=== PATIENT | male | born 1990 | race Hispanic/Latino ===

== ENCOUNTER 2018-08-31 16:48 | Emergency (ER) | payer OTHER, SELFPAY ==
[2018-08-31 16:53] VITALS: BP 138/96; PULSE 85; RESP 16; TEMP 36.7; O2SAT 97; BMI 29.5
--- NOTE | 2018-08-31 17:17 | DI.CT.S_ITS ---
PROCEDURE: CT HEAD/BRAIN WO CON INDICATIONS: blurred vision TECHNIQUE: Noncontrast 4.5 mm thick angled axial sections acquired from the foramen magnum to the vertex, with coronal and sagittal reformats. For radiation dose reduction, the following was used: automated exposure control, adjustment of mA and/or kV according to patient size. COMPARISON: None. FINDINGS: Image quality: Excellent. CSF spaces: Basal cisterns are patent. No extra-axial fluid collections. Ventricles are normal in size and shape. Brain: No midline shift. No intracranial masses or hemorrhage. Maria-white matter interface is normal. Skull and face: Calvarium and visualized facial bones are intact, without suspicious lesions. Sinuses: Visualized sinuses and mastoids are clear. IMPRESSION: Normal noncontrast head CT. If clinically appropriate, please consider a dedicated orbits protocol MRI for further evaluation, without and with contrast (assuming that there is no contraindication). Dictated by: Roc Perla M.D. on 08/31/2018 at 16:48 Approved by: Roc Perla M.D. on 08/31/2018 at 16:49
--- NOTE | 2018-08-31 17:39 | ED_ITS ---
HPI - Eye Problem General Chief complaint: Eye Problems Stated complaint: both eyes are blurry/black specks x2days Time Seen by Provider: 08/31/18 17:02 Source: patient and family Mode of arrival: ambulatory Limitations: no limitations History of Present Illness HPI Narrative: A 28-year-old male nonsmoker with minimal other medical problems presents with a chief complaint bilateral blurring of vision and floaters. He denies any headache, nausea or vomiting. He denies any trauma or other injury. He denies fever or chills. He states that he had flu-like symptoms about 2 weeks ago which were rather severe but have completely resolved for at least 1 week. He denies any history of the same. He has no history of migraines. He denies eye pain, redness or watering. He denies exposure to UV lights or possib le foreign bodies chief complaint: vision change Onset (ago): day(s) Onset description: gradual Duration: constant Location: both eyes Eye Symptoms: decreased vision, blurry vision and photophobia Severity: mild Context: recent URI Associated symptoms: none Treatments Prior to Arrival: none Related Data Allergies Allergy/AdvReac Type Severity Reaction Status Date / Time ibuprofen Allergy Hives Verified 08/31/18 16:57 Review of Systems Constitutional Denies chills, Denies fever(s), Denies lethargy and Denies weakness Eyes Reports change in vision, Denies eye discharge, Reports floaters, Denies irritation and Denies loss of vision ENT Ears, Nose, Mouth, and Throat: Denies change in voice, Denies neck pain and Denies sore throat Cardiovascular Denies chest pain, Denies irregular heart rhythm, Denies lightheadedness, Denies palpitations, Denies dyspnea, Denies dyspnea on exertion and Denies orthopnea Respiratory Denies cough, Denies dyspnea, Denies dyspnea on exertion and Denies wheezing Gastrointestinal Gastrointestinal: Denies abdominal pain, Denies change in bowel habits, Denies diarrhea, Denies nausea and Denies vomiting Genitourinary Denies hematuria, Denies flank pain, Denies urinary incontinence and Denies urinary urgency Musculoskeletal Denies neck pain Integumentary/Breasts Denies pruritus, Denies erythema, Denies rash and Denies wounds Neurologic Denies confusion, Denies loss of vision and Denies weakness Psychiatric Denies anxiety, Denies confusion, Denies depression, Denies homicidal ideation and Denies suicidal ideation Endocrine Denies palpitations Hematologic/Lymphatic Denies easy bruising Allergic/Immunologic Denies wheezing PFSH Social History Smoking Status: Never smoker Social History Smoking Status: Never smoker Exam Narrative Exam Narrative: GEN: AOx3 and in mild distress EYES: Pupils are equal, round, and reactive to light and accommodation. Extraoccular muscles are intact bilaterally. There is no subconjunctival hemorrhage or exudate. Proparacaine instilled in both eyes. Pressure in right eye is 17, left eye in 19. Visual Acuity 20/70 OS/OD corrected CHEST: Lungs are clear to auscultation bilaterally and free of wheezes, rales, or rhonchi. Heart rate is regular rhythm, there are no murmurs, clicks, rubs, or gallops. There is no chest wall tenderness. ABD: Abdomen is soft and nontender. There is no guarding or rebound. Bowel sounds are normal in all 4 quadrants. There is no mass or organomegaly. EXT: Full painless ROM of all extremities with no loss of sensation or strength. SKIN: Warm, pink, and dry. No erythema or rash NIH Stroke Scale 1a. LOC: Patient is alert and keenly responsive (0) 1b. LOC Questions: Patient answers both LOC questions accurately (0) 1c. LOC Commands: Patient performs both tasks correctly (0) 2. Best Gaze: Normal (0) 3. Visual: No visual loss (0) 4. Facial palsy: Normal symmetrical movements (0) 5. Motor arm: No drift (0) 6. Motor leg: No drift (0) 7. Limb ataxia: Absent (0) 8. Sensory: Normal (0) 9. Best language: No aphasia; normal (0) 10. Dysarthria: Normal (0) 11. Extinction and inattention: No abnormality (0) NIHSS: 0 Initial Vital Signs Initial Vital Signs: Vital Signs Temperature 98.0 F 08/31/18 16:53 Pulse Rate 85 08/31/18 16:53 Respiratory Rate 16 08/31/18 16:53 Blood Pressure 138/96 H 08/31/18 16:53 Pulse Oximetry 97 08/31/18 16:53 Course Orders Ordered: ED Orders 08/31/18 17:17 CT head/brain wo con Stat 08/31/18 17:30 Basic Metabolic Panel Stat C-Reactive Protein Quant Stat Complete Blood Count AUTO DIFF Stat Erythrocyte Sedimentation Rate Stat Discontinued Medications Sodium Chloride (Normal Saline 0.9%) 1,000 mls @ 1,000 mls/hr IV BOLUS ONE Stop: 08/31/18 18:15 Last Infusion: 08/31/18 19:06 Dose: 0 mls/hr Admin: 08/31/18 17:57 Dose: 1,000 mls/hr Methylprednisolone (Solu-Medrol 125 Mg Vial) 125 mg IV NOW ONE Stop: 08/31/18 17:17 Last Admin: 08/31/18 17:56 Dose: 125 mg Metoclopramide HCl (Reglan) 10 mg IV NOW ONE Stop: 08/31/18 17:17 Last Admin: 08/31/18 17:56 Dose: 10 mg Consultations Consultation #1: call to Ophtho at [facility] to discuss case. They are happy with evaluation and treatment thusfar but recommend follow up in next day or two. No need for emergent transfer or intervention Vital Signs - 8 hr 08/31/18 16:53 08/31/18 18:33 08/31/18 19:50 Temperature 98.0 F 98.1 F Pulse Rate 85 64 88 Respiratory Rate 16 17 16 Blood Pressure 138/96 H 134/91 H Blood Pressure [Left Arm] 134/86 Pulse Oximetry 97 98 96 MDM - Eye Problem Lab Data Result diagrams: 08/31/18 17:30 08/31/18 17:30 Lab Results 08/31/18 08/31/18 Range/Units 17:30 17:30 WBC 8.4 (4.5-11.0) X10^3/uL RBC 4.71 (4.5-5.9) X10^6/uL Hgb 12.6 L (13.5-17.5) g/dL Hct 37.7 L (41-53) % MCV 80.0 (80-100) fL MCH 26.8 (26-34) PG MCHC 33.4 (30-36) % RDW 15.7 H (11.6-14.8) % Plt Count 307 (150-400) X10^3/uL Neut % (Auto) 65.0 (50-75) % Lymph % (Auto) 22.4 L (25-40) % [place] % (Auto) 11.3 (3-14) % Eos % (Auto) 0.7 L (2-4) % Baso % (Auto) 0.6 (0-2) % Neut # (Auto) 5500 (7917-7021) /uL Lymph # (Auto) 1900 (7104-3476) /uL [place] # (Auto) 900 (0-900) /uL Eos # (Auto) 100 (0-450) /uL Baso # (Auto) 0 (0-100) /uL ESR 20 H (0-15) MM/HR Sodium 140 (137-145) mmol/L Potassium 4.0 (3.4-5.1) mmol/L Chloride 102 (98-107) mmol/L Carbon Dioxide 28 (22-32) mmol/L BUN 13 (9-20) mg/dL Creatinine 0.70 (0.66-1.25) mg/dL Estimated GFR > 60.0 (>60) mL/min BUN/Creatinine Ratio 18.6 (6-22) Glucose 93 (70-100) mg/dL Calcium 9.7 (8.4-10.2) mg/dL C-Reactive Protein 1.9 H (<1.0) mg/dL Imaging Data CT scan - head: Radiologist's impression: JorgeMarkus 28 [place] 1990 [place] [address] CT Scan Report Signed Patient: Markus Patel BMR#: [id number] : 1990Acct:[id number] Age/Sex: 28 MDate of Service: 08/31/18 Loc: ED Accession Number: [id number] Procedure: CT head/brain wo con Ordering Provider: Thomas Hutchison D.O. PROCEDURE: CT HEAD/BRAIN WO CON INDICATIONS: blurred vision TECHNIQUE: Noncontrast 4.5 mm thick angled axial sections acquired from the foramen magnum to the vertex, with coronal and sagittal reformats. For radiation dose reduction, the following was used: automated exposure control, adjustment of mA and/or kV according to patient size. COMPARISON: None. FINDINGS: Image quality: Excellent. CSF spaces: Basal cisterns are patent. No extra-axial fluid collections. Ventricles are normal in size and shape. Brain: No midline shift. No intracranial masses or hemorrhage. Maria-white matter interface is normal. Skull and face: Calvarium and visualized facial bones are intact, without suspicious lesions. Sinuses: Visualized sinuses and mastoids are clear. IMPRESSION: Normal noncontrast head CT. If clinically appropriate, please consider a dedicated orbits protocol MRI for further evaluation, without and with contrast (assuming that there is no contraindicati on). Dictated by: Roc Perla M.D. on 08/31/2018 at 16:48 Approved by: Roc Perla M.D. on 08/31/2018 at 16:[address] [facility] Narrative Medical decision making narrative: Multiple etiologies for patient's symptoms considered including: [atypical migraine, GCA, stroke, vs. other.] Patient's symptoms improved over duration of stay with above-stated therapies. Findings and discharge diagnosis discussed with patient/family followed by verbalization of understanding Return precautions discussed with patient/family whom verbalize understanding. Discharge Plan Departure Patient Disposition: Home Clinical Impression: Photophobia, Change in vision Discharge Date/Time: 08/31/18 19:51 Interventions: ED Discharge Assessment Last Done: 08/31/18 19:50 Instructions: DI for Eye Floaters Activity Restrictions/Additional Instructions: *You have been diagnosed with [photophobia, blurred vision] *What to do: *Follow up with [facility] tomorrow morning. They will see Emergency Department patients the following morning without appointment. Let them know you were seen in the Emergency Department and that we ask that you be seen in follow up *Return to ER if you should have any new, worsening or concerning symptoms Referrals: Wendy Mayo MD [Physician] -
[2018-08-31 17:48] LABS: Add Manual Diff / Slide Review NO; Basophils Absolute Auto 0 /uL (0-100); Basophils Percent Auto 0.6 % (0-2); Eosinophils Absolute Auto 100 /uL (0-450); Eosinophils Percent Auto 0.7 % (2-4); Hematocrit 37.7 % (41-53); Hemoglobin 12.6 g/dL (13.5-17.5); Lymphocytes Absolute Auto 1900 /uL (1100-4500); Lymphocytes Percent Auto 22.4 % (25-40); Mean Corpuscular HGB Conc 33.4 % (30-36); Mean Corpuscular Hemoglobin 26.8 PG (26-34); Monocytes Absolute Auto 900 /uL (0-900); Monocytes Percent Auto 11.3 % (3-14); Neutrophils Absolute Auto 5500 /uL (1500-7000); Platelet Count 307 X10^3/uL (150-400); Red Blood Cell Count 4.71 X10^6/uL (4.5-5.9); Red Cell Distribution Width 15.7 % (11.6-14.8); White Blood Cell Count 8.4 X10^3/uL (4.5-11.0)
[2018-08-31] MEDS: METOCLOPRAMIDE 10 MG/2 ML INJ IV (17:56)
[2018-08-31] MEDS: methylPREDNISolone 125 MG/2 ML VIAL IV (17:56)
[2018-08-31] MEDS: SODIUM CHLORIDE 0.9% 1,000 ML 1000 ML IV (17:57)
[2018-08-31 17:59] LABS: BUN Creatinine Ratio 18.6 (6-22); Blood Urea Nitrogen 13 mg/dL (9-20); C-Reactive Protein Quant 1.9 mg/dL (<1.0); Calcium 9.7 mg/dL (8.4-10.2); Carbon Dioxide 28 mmol/L (22-32); Chloride 102 mmol/L (98-107); Estimated Glomerular Filt Rate > 60.0 mL/min (>60); Glucose 93 mg/dL (70-100); HEMOLYSIS < 15 (0-50); Sodium 140 mmol/L (137-145)
[2018-08-31 18:02] LABS: Erythrocyte Sedimentation Rate 20 MM/HR (0-15)
[2018-08-31 18:33] VITALS: BP 134/86; PULSE 64; RESP 17; O2SAT 98
[2018-08-31 19:50] VITALS: BP 134/91; PULSE 88; RESP 16; TEMP 36.7; O2SAT 96
== END 2018-08-31 19:51 | disposition home or self-care (01) ==
PROVIDERS: Emergency Provider Emergency Medicine
DX: H53.9 Unspecified visual disturbance (principal); H53.149 Visual discomfort, unspecified
CPT/HCPCS: 70450; 80048; 85025; 85651; 86140; 96361; 96374; 96375; 99283; 99284; J2765; J2930

== ENCOUNTER 2020-02-20 12:31 | Inpatient (IN) | payer OTHER, SELFPAY ==
[2020-02-20] VITALS (17 sets, daily range): BP systolic 104–133; BP diastolic 58–75; PULSE 96–133; RESP 16–31; TEMP 37–38.8; O2SAT 88–96; BMI 31.5
--- NOTE | 2020-02-20 12:45 | PC.NURSE ---
pt came into ED at 94% on O2 in triage, while charting triage pt dropped to 88% O2 while relaxing and drifting off to sleep, pt placed on 2L O2
--- NOTE | 2020-02-20 13:16 | ED_ITS ---
HPI - URI/Sore Throat General Chief Complaint: Upper Respiratory Symptoms Stated Complaint: COVID Exposure, COVID Symptoms Time Seen by Provider: 02/20/20 12:39 Source: patient Mode of arrival: Ambulatory Limitations: no limitations History of Present Illness HPI Narrative: Patient is a 29-year-old male who started having headaches fever chills and has a known COVID positive exposure, his dad. Symptoms started about 1 week ago. He continues to have body aches and chills. He is more short of breath than normal. His dad actually was recently intubated and transferred to a larger facility. He has no known cor morbidities, foot is noted to be tachycardic on O2 dropped to 86-88% on room air. Grandmother this morning from COVID. He is noted to be febrile he states he took 2 tabs of Tylenol 2 hours prior to arrival. MD Complaint: fever and cough Relieving factors: nothing Related Data Home Medications Medication Instructions Recorded Confirmed No Known Home Medications 02/20/20 02/20/20 Allergies Allergy/AdvReac Type Severity Reaction Status Date / Time ibuprofen Allergy Hives Verified 08/31/18 16:57 Review of Systems Review of Systems ROS Unobtainable: All systems reviewed & are unremarkable except as noted in HPI and below Constitutional Constitutional: Reports body ache(s), Reports chills, Reports fever(s) and Denies frequent falls Eyes Eyes: Denies blurry vision ENT Ears, Nose, Mouth, and Throat: Denies dizziness Cardiovascular Cardiovascular: Denies chest pain, Denies irregular heart rhythm, Denies lightheadedness, Denies palpitations, Reports dyspnea and Reports orthopnea Respiratory Respiratory: Reports chest congestion, Reports cough, Denies excessive phlegm production and Reports dyspnea Gastrointestinal Gastrointestinal: Denies abdominal pain, Denies change in bowel habits, Denies diarrhea, Denies nausea and Denies vomiting Musculoskeletal Musculoskeletal: Denies back pain, Reports myalgias and Denies numbness Integumentary/Breasts Skin/Breast: Denies pruritus, Denies erythema, Denies rash and Denies wounds Neurologic Neurologic: Denies behavioral changes, Denies confusion, Denies dizziness, Denies frequent falls and Denies numbness Psychiatric Psychiatric: Denies behavioral changes and Denies confusion Endocrine Endocrine: Denies palpitations Patient History Medical History Patient denies medical problems Surgical History No pertinent past surgical history Family History Father Diabetes mellitus Asthma Mother Healthy adult Sister Asthma Social History household members: family Smoking Status: Never smoker Smoking Status: Never smoker Substance Use Type: does not use Exam Initial Vital Signs Initial Vital Signs: Vital Signs Pulse Rate 130 H 02/20/20 12:40 Pulse Oximetry 93 02/20/20 12:40 GENERAL: Slightly overweight male resting HEENT: Head atraumatic,EOMI, pupils reactive, face symmetric, moist mucous membranes CARDIOVASCULAR tachycardic no murmur RESPIRATORY: Breath sounds equal bilaterally, no wheezes rales or rhonchi. ABDOMEN: Soft, nontender. Normoactive bowel sounds all 4 quadrants. No guarding or rebound. EXTREMITIES: Normal range of motion, no clubbing or edema. Neurovascularly intact NEUROLOGICAL: Alert and oriented x4.Normal gait and speech. Cranial nerves II through XII grossly intact. SKIN: Warm, dry, no laceration, no petechiae, no rashes or lesions. Course Orders Ordered: ED Orders 02/20/20 12:48 COVID19 Stat 02/20/20 13:14 EKG-12 Lead Stat 02/20/20 13:15 XR chest 1V Stat 02/20/20 13:20 C-Reactive Protein Quant Stat Complete Blood Count AUTO DIFF Stat Comprehensive Metabolic Panel Stat D Dimer Stat Ferritin Stat Lactate (Lactic Acid) Stat Lactate Dehydrogenase Stat NT-proBNP (BNP-Adult 18+) Stat Procalcitonin Stat Troponin & CK Cardiac Panel Stat 02/20/20 15:10 Respiratory Panel (Film Array) Stat Acetaminophen (Acetaminophen 325 Mg Tablet) 650 mg PO Q6HR PRN PRN Reason: Fever/Mild Pain (1-3) Al Hydrox/Mg Hydrox/Simethicone (Mag Hydrox/Alum/Simeth 30 Ml Udc) 30 ml PO Q6HR PRN PRN Reason: Dyspepsia Albuterol (Albuterol Hfa 200 Puff/18 Gm Inh (Covid Pos/Vent Pts)) 2 puff INH [id number] PRN PRN Reason: Shortness Of Breath Benzocaine (Benzocaine/Menthol 1 Antonia Pkt) 1 each PO Q4HR PRN PRN Reason: Cough, sore throat Last Admin: 02/20/20 17:41 Dose: 1 each Documented by: GABINO Benzonatate (Benzonatate 100 Mg Capsule) 100 mg PO TID PRN PRN Reason: Cough Bisacodyl (Bisacodyl 10 Mg Supp) 10 mg SD DAILY PRN PRN Reason: Constipation Calcium Carbonate (Calcium Carbonate 500 Mg Tab) 1,000 mg PO Q4HR PRN PRN Reason: Dyspepsia Dexamethasone (Dexamethasone 10 Mg/Ml Vial) 6 mg IV DAILY [facility] Dextrose (Dextrose 50 % In Water 25 Gm/50 Ml Syringe) 25 gm IV PRN PRN; Protocol PRN Reason: Hypoglycemia Enoxaparin Sodium (Enoxaparin 40 Mg/0.4 Ml Syringe) 40 mg SUBCUT DAILY TON Guaifenesin/Codeine Phosphate (Codeine/Guaifenesin Liquid 5ml Udc) 5 ml PO Q6H PRN PRN Reason: Cough Sodium Chloride (Normal Saline 0.9%) 1,000 mls @ 125 mls/hr IV CONT TON Last Infusion: 02/20/20 15:54 Dose: 125 mls/hr Documented by: Admin: 02/20/20 13:20 Dose: 125 mls/hr Documented by: ANITRAOTEM Remdesivir 100 mg/ Sodium (Chloride) 250 mls @ 250 mls/hr IV 1400 TON Ibuprofen (Ibuprofen 600 Mg Tablet) 600 mg PO Q6HR PRN PRN Reason: Fever/Mild Pain (1-3) Insulin Aspart (Insulin Aspart 100 Unit/Ml Insuln Pen) 0 unit SUBCUT ACHS [facility]; Protocol Magnesium Hydroxide (Magnesium Hydroxide 30 Ml Udc) 30 ml PO DAILY PRN PRN Reason: Constipation Naloxone HCl (Naloxone 0.4 Mg/Ml Vial) 0.2 mg IV Q2MIN PRN PRN Reason: Opiate Reversal Ondansetron HCl (Ondansetron 4 Mg/2 Ml Inj) 4 mg IV Q8HR PRN PRN Reason: Nausea And Vomiting Ondansetron HCl (Ondansetron 4 Mg Odt) 4 mg PO Q8HR PRN PRN Reason: Nausea And Vomiting Promethazine HCl (Promethazine 12.5 Mg Supp) 12.5 mg SD Q6HR PRN PRN Reason: Nausea And Vomiting Discontinued Medications Acetaminophen (Acetaminophen 325 Mg Tablet) 975 mg PO NOW ONE Stop: 02/20/20 15:31 Last Admin: 02/20/20 15:33 Dose: 975 mg Documented by: PAULA Dexamethasone (Dexamethasone 4 Mg/Ml Vial) 6 mg IV NOW ONE Stop: 02/20/20 14:48 Last Admin: 02/20/20 15:06 Dose: Not Given Documented by: NATHAN Remdesivir 200 mg/ Sodium (Chloride) 250 mls @ 250 mls/hr IV NOW ONE Stop: 02/20/20 14:48 Last Infusion: 02/20/20 17:22 Dose: 0 mls/hr Documented by: Infusion: 02/20/20 15:56 Dose: 250 mls/hr Documented by: Admin: 02/20/20 15:05 Dose: 250 mls/hr Documented by: NATHAN Potassium Chloride (Potassium Chloride 20 Meq Tab) 40 meq PO NOW ONE Stop: 02/20/20 16:48 Last Admin: 02/20/20 17:41 Dose: 40 meq Documented by: GABINO Vital Signs Vital signs: Vital Signs - 8 hr 02/20/20 12:40 02/20/20 12:41 02/20/20 12:45 Temperature 100.6 F H Pulse Rate 130 H 133 H Respiratory Rate 26 H Blood Pressure 104/58 L Pulse Oximetry 93 93 88 L 02/20/20 13:00 02/20/20 13:30 02/20/20 13:47 Temperature Pulse Rate 110 H 109 H 104 H Respiratory Rate Blood Pressure 112/65 133/69 Pulse Oximetry 94 96 93 02/20/20 14:00 02/20/20 14:30 Temperature Pulse Rate 97 H 106 H Respiratory Rate 24 31 H Blood Pressure 121/65 118/72 Pulse Oximetry 94 94 MDM - URI/Sore Throat Lab Data Attestation: I reviewed the patient's lab results. Result diagrams: 02/20/20 13:20 02/20/20 13:20 Labs: Lab Results 02/20/20 02/20/20 02/20/20 Range/Units 12:48 13:20 13:20 WBC (4.5-11.0) X10^3/uL RBC (4.5-5.9) X10^6/uL Hgb (13.5-17.5) g/dL Hct (41-53) % MCV (80-100) fL MCH (26-34) PG MCHC (30-36) % RDW (11.6-14.8) % Plt Count (150-400) X10^3/uL Neut % (Auto) (50-75) % Lymph % (Auto) (25-40) % Reynolds % (Auto) (3-14) % Eos % (Auto) (2-4) % Baso % (Auto) (0-2) % Neut # (Auto) (1857-2707) /uL Lymph # (Auto) (0197-6201) /uL Reynolds # (Auto) (0-900) /uL Eos # (Auto) (0-450) /uL Baso # (Auto) (0-100) /uL D-Dimer 254 H (<230) ng/mL Sodium (137-145) mmol/L Potassium (3.4-5.1) mmol/L Chloride (98-107) mmol/L Carbon Dioxide (22-32) mmol/L BUN (9-20) mg/dL Creatinine (0.66-1.25) mg/dL Estimated GFR (>60) mL/min BUN/Creatinine Ratio (6-22) Glucose (70-100) mg/dL Hemoglobin A1c (4.0-6.0) % Lactate (0.7-2.1) mmol/L Calcium (8.4-10.2) mg/dL Magnesium (1.6-2.3) mg/dL Ferritin (18-464) ng/mL Total Bilirubin (0.2-1.3) mg/dL AST (17-59) IU/L ALT (<50) IU/L Alkaline Phosphatase (38-126) U/L Lactate Dehydrogenase (313-618) U/L Total Creatine Kinase (55-170) U/L CK-MB (CK-2) (<2.37) ng/mL CK-MB (CK-2) Rel Index (1.5-5.0) % Troponin I (0.01-0.034) ng/mL C-Reactive Protein (<1.0) mg/dL NT-Pro-B Natriuret Pep (<125) pg/mL Total Protein (6.3-8.2) g/dL Albumin (3.5-5.0) g/dL Globulin (1.7-4.1) g/dL Albumin/Globulin Ratio (1.0-2.8) Procalcitonin 0.13 (<0.5) ng/mL COVID-19 PCR Positive H (Negative) 02/20/20 02/20/20 02/20/20 Range/Units 13:20 13:20 13:20 WBC 7.8 (4.5-11.0) X10^3/uL RBC 5.56 (4.5-5.9) X10^6/uL Hgb 13.9 (13.5-17.5) g/dL Hct 42.4 (41-53) % MCV 76.2 L (80-100) fL MCH 24.9 L (26-34) PG MCHC 32.7 (30-36) % RDW 15.3 H (11.6-14.8) % Plt Count 171 (150-400) X10^3/uL Neut % (Auto) 81.0 H (50-75) % Lymph % (Auto) 11.6 L (25-40) % Reynolds % (Auto) 7.1 (3-14) % Eos % (Auto) 0.0 L (2-4) % Baso % (Auto) 0.3 (0-2) % Neut # (Auto) 6300 (2314-0289) /uL Lymph # (Auto) 900 L (7367-6067) /uL Reynolds # (Auto) 600 (0-900) /uL Eos # (Auto) 0 (0-450) /uL Baso # (Auto) 0 (0-100) /uL D-Dimer (<230) ng/mL Sodium 139 (137-145) mmol/L Potassium 3.6 (3.4-5.1) mmol/L Chloride 103 (98-107) mmol/L Carbon Dioxide 28 (22-32) mmol/L BUN 18 (9-20) mg/dL Creatinine 1.08 (0.66-1.25) mg/dL Estimated GFR > 60.0 (>60) mL/min BUN/Creatinine Ratio 16.7 (6-22) Glucose 101 H (70-100) mg/dL Hemoglobin A1c (4.0-6.0) % Lactate 1.0 (0.7-2.1) mmol/L Calcium 8.6 (8.4-10.2) mg/dL Magnesium (1.6-2.3) mg/dL Ferritin 92 (18-464) ng/mL Total Bilirubin 0.5 (0.2-1.3) mg/dL AST 60 H (17-59) IU/L ALT 29 (<50) IU/L Alkaline Phosphatase 83 (38-126) U/L Lactate Dehydrogenase 1333 H (313-618) U/L Total Creatine Kinase 731 H (55-170) U/L CK-MB (CK-2) 0.47 (<2.37) ng/mL CK-MB (CK-2) Rel Index 0.1 L (1.5-5.0) % Troponin I < 0.012 (0.01-0.034) ng/mL C-Reactive Protein 4.1 H (<1.0) mg/dL NT-Pro-B Natriuret Pep < 11 (<125) pg/mL Total Protein 8.2 (6.3-8.2) g/dL Albumin 4.3 (3.5-5.0) g/dL Globulin 3.9 (1.7-4.1) g/dL Albumin/Globulin Ratio 1.1 (1.0-2.8) Procalcitonin (<0.5) ng/mL COVID-19 PCR (Negative) 02/20/20 02/20/20 Range/Units 13:20 13:20 WBC (4.5-11.0) X10^3/uL RBC (4.5-5.9) X10^6/uL Hgb (13.5-17.5) g/dL Hct (41-53) % MCV (80-100) fL MCH (26-34) PG MCHC (30-36) % RDW (11.6-14.8) % Plt Count (150-400) X10^3/uL Neut % (Auto) (50-75) % Lymph % (Auto) (25-40) % Reynolds % (Auto) (3-14) % Eos % (Auto) (2-4) % Baso % (Auto) (0-2) % Neut # (Auto) (3524-2033) /uL Lymph # (Auto) (9200-4185) /uL Reynolds # (Auto) (0-900) /uL Eos # (Auto) (0-450) /uL Baso # (Auto) (0-100) /uL D-Dimer (<230) ng/mL Sodium (137-145) mmol/L Potassium (3.4-5.1) mmol/L Chloride (98-107) mmol/L Carbon Dioxide (22-32) mmol/L BUN (9-20) mg/dL Creatinine (0.66-1.25) mg/dL Estimated GFR (>60) mL/min BUN/Creatinine Ratio (6-22) Glucose (70-100) mg/dL Hemoglobin A1c 6.2 H (4.0-6.0) % Lactate (0.7-2.1) mmol/L Calcium (8.4-10.2) mg/dL Magnesium 2.2 (1.6-2.3) mg/dL Ferritin (18-464) ng/mL Total Bilirubin (0.2-1.3) mg/dL AST (17-59) IU/L ALT (<50) IU/L Alkaline Phosphatase (38-126) U/L Lactate Dehydrogenase (313-618) U/L Total Creatine Kinase (55-170) U/L CK-MB (CK-2) (<2.37) ng/mL CK-MB (CK-2) Rel Index (1.5-5.0) % Troponin I (0.01-0.034) ng/mL C-Reactive Protein (<1.0) mg/dL NT-Pro-B Natriuret Pep (<125) pg/mL Total Protein (6.3-8.2) g/dL Albumin (3.5-5.0) g/dL Globulin (1.7-4.1) g/dL Albumin/Globulin Ratio (1.0-2.8) Procalcitonin (<0.5) ng/mL COVID-19 PCR (Negative) Imaging Data Chest x-ray: Radiologist's Impression: PROCEDURE: XR CHEST 1V INDICATIONS: +covid TECHNIQUE: One view of the chest was acquired. COMPARISON: None. FINDINGS: Surgical changes and devices: None. Lungs and pleura: There are multiple bilateral opacities with mild prominence of the interstitium. No pneumothorax or large volume pleural effusion. Mediastinum: Mediastinal contours appear normal. Heart size is normal. Bones and chest wall: No suspicious bony lesions. Overlying soft tissues appear unremarkable. IMPRESSION: Multifocal pulmonary opacities concerning for Covid pneumonia with the given clinical history. Dictated by: Luc Mccauley D.O. on 02/20/2020 at 13:16 ECG Data Attestation: I personally reviewed and interpreted this ECG as follows: Interpretation: Normal sinus rhythm rate 105 p.r. interval 144 QRS [address] changes MDM Narrative Medical decision making narrative: Patient is intermittently hypoxic on room air requiring a small amount of oxygen. He has COVID pneumonia on his chest x-ray. To recent family members 1 critically ill and intubated the other . He does have elevated LDH as well as CRP no cor morbidities. Dr. ward updated on patient's symptoms test results. Agrees with admission. Discharge Plan Departure Patient Disposition: Admitted As Inpatient Clinical Impression: COVID-19, Acute respiratory failure with hypoxemia Admit Date/Time: 02/20/20 14:49 Admit Provider: Brittany Burks
[2020-02-20 13:18] LABS: COVID19 -Nasal RAPID POSITIVE (Negative)
[2020-02-20] MEDS: SODIUM CHLORIDE 0.9% 1,000 ML 125 ML IV (13:20)
[2020-02-20 13:45] LABS: Add Manual Diff / Slide Review NO; Basophils Absolute Auto 0 /uL (0-100); Basophils Percent Auto 0.3 % (0-2); Eosinophils Absolute Auto 0 /uL (0-450); Hematocrit 42.4 % (41-53); Hemoglobin 13.9 g/dL (13.5-17.5); Lymphocytes Absolute Auto 900 /uL (1100-4500); Lymphocytes Percent Auto 11.6 % (25-40); Mean Corpuscular HGB Conc 32.7 % (30-36); Mean Corpuscular Hemoglobin 24.9 PG (26-34); Mean Corpuscular Volume 76.2 fL (80-100); Monocytes Absolute Auto 600 /uL (0-900); Monocytes Percent Auto 7.1 % (3-14); Neutrophils Absolute Auto 6300 /uL (1500-7000); Platelet Count 171 X10^3/uL (150-400); Red Blood Cell Count 5.56 X10^6/uL (4.5-5.9); Red Cell Distribution Width 15.3 % (11.6-14.8); White Blood Cell Count 7.8 X10^3/uL (4.5-11.0)
[2020-02-20 13:59] LABS: D Dimer 254 ng/mL (<230)
[2020-02-20 14:03] LABS: Alanine Aminotransferase 29 IU/L (<50); Albumin 4.3 g/dL (3.5-5.0); Albumin Globulin Ratio 1.1 (1.0-2.8); Alkaline Phosphatase 83 U/L (38-126); Aspartate Aminotransferase 60 IU/L (17-59); BUN Creatinine Ratio 16.7 (6-22); Bilirubin Total 0.5 mg/dL (0.2-1.3); Blood Urea Nitrogen 18 mg/dL (9-20); C-Reactive Protein Quant 4.1 mg/dL (<1.0); Calcium 8.6 mg/dL (8.4-10.2); Carbon Dioxide 28 mmol/L (22-32); Chloride 103 mmol/L (98-107); Creatine Kinase 731 U/L (55-170); Estimated Glomerular Filt Rate > 60.0 mL/min (>60); Globulin 3.9 g/dL (1.7-4.1); Glucose 101 mg/dL (70-100); HEMOLYSIS < 15 (0-50); Lactate Dehydrogenase 1333 U/L (313-618); Potassium 3.6 mmol/L (3.4-5.1); Sodium 139 mmol/L (137-145); Total Protein 8.2 g/dL (6.3-8.2)
[2020-02-20 14:13] LABS: NT-proBNP (BNP-Adult 18+) < 11 pg/mL (<125); Troponin I < 0.012 ng/mL (0.01-0.034)
[2020-02-20 14:16] LABS: CKMB % Relative Index 0.1 % (1.5-5.0); Creatine Kinase MB 0.47 ng/mL (<2.37); Procalcitonin 0.13 ng/mL (<0.5)
[2020-02-20 14:35] LABS: Ferritin 92 ng/mL (18-464)
[2020-02-20] MEDS: DEXAMETHASONE 10 MG/ML VIAL (15:04)
[2020-02-20] MEDS: REMDESIVIR 200 MG in SODIUM CHLORIDE 0.9% 210 ML 250 ML IV (15:05)
[2020-02-20] MEDS: ACETAMINOPHEN 325 MG TABLET 975 MG PO (15:33)
--- NOTE | 2020-02-20 16:56 | PM.HP.1 ---
History of Present Illness History of Present Illness Date Patient Seen: 02/20/20 Chief complaint: COVID Exposure, COVID Symptoms Narrative: Markus Patel is 29-year-old male with no pertinent past medical history who was in his usual state of health until he contracted COVID-19 and presented to the ED with worsening cough with paroxysms and shortness of breath. The patient reports that 2 weeks ago his grandmother and father became ill with COVID-19. His father was hospitalized and required intubation and transfer to [facility] for intensive care. He reports that his grandmother this morning at home due to COVID-19. He reports that he became ill 5-7 days ago and was tested for COVID-19 but had not received his results. He endorses severe cough, post-tussive emesis with his coughing paroxysms, fever, chills, myalgias, intermittent headache due to coughing, chest pain due to coughing, shortness of breath, diarrhea and loss of smell and taste. He denies abdominal pain, nausea or vomiting unrelated to cough. He is voiding without difficulty. ED course: Vital signs: Temperature 101.8?, blood pressure 129/71, heart rate 102, respiratory rate 28, SpO2 95% on room air. The patient had a brief episode of desaturation to 86-88% on room air and was started on 2 L of supplemental oxygen. COVID-19 positive. Respiratory PCR negative. Chest x-ray demonstrated multifocal pulmonary opacities consistent with COVID viral pneumonia. PCP Jp Nielsen Patient History Medical History Patient denies medical problems Surgical History No pertinent past surgical history Family & Social History Family History Father Diabetes mellitus Asthma Mother Healthy adult Sister Asthma Safety & Behavioral: Feels Safe in Current Yes Environment Been Physically Hurt or No Threatened By a Person Tobacco & Substance use: Smoking Status Never smoker Substance Use Type Does not use Alcohol None Meds Home Medications and Allergies Home Medications Medication Instructions Recorded Confirmed Type No Known Home Medications 02/20/20 02/20/20 History Allergies Allergy/AdvReac Type Severity Reaction Status Date / Time ibuprofen Allergy Hives Verified 08/31/18 16:57 Review of Systems Review of Systems Narrative: A 10 system comprehensive review of systems was conducted with the patient and found to be negative except as above in the History of Present Illness. Exam Vital Signs (past 8 hours): - 02/20/20 12:40 02/20/20 12:41 02/20/20 12:45 Temperature 100.6 F H Pulse Rate 130 H 133 H Respiratory Rate 26 H Blood Pressure 104/58 L Pulse Oximetry 93 93 88 L 02/20/20 13:00 02/20/20 13:30 02/20/20 13:47 Temperature Pulse Rate 110 H 109 H 104 H Respiratory Rate Blood Pressure 112/65 133/69 Pulse Oximetry 94 96 93 02/20/20 14:00 02/20/20 14:30 02/20/20 15:00 Temperature Pulse Rate 97 H 106 H 106 H Respiratory Rate 24 31 H 29 H Blood Pressure 121/65 118/72 121/71 Pulse Oximetry 94 94 94 02/20/20 15:30 02/20/20 15:33 02/20/20 15:34 Temperature 101.8 F H 101.8 F H Pulse Rate 102 H Respiratory Rate 28 H Blood Pressure 129/71 Pulse Oximetry 95 Oxygen Delivery Method Room Air Oxygen Flow Rate 2 Narrative Exam Narrative: General: Young male lying in bed and in no acute distress, acutely ill, well-developed, well-nourished, appropriately interactive. HEENT: Normocephalic, atraumatic. External ears without defect. Pupils equal, round, and reactive to light. Anicteric sclerae, moist conjunctivae, and no lid lag. Oropharynx free of erythema and cobble stoning with moist mucosa. Neck: Supple with full range of motion. No jugular venous distension. No lymphadenopathy or thyromegaly. Cardiovascular: Regular rhythm, tachycardic, without murmurs, rubs, or gallops appreciated. Pulmonary: Clear to auscultation bilaterally without crackles, wheezes, or rhonchi. Normal respiratory effort with no use of accessory muscles. Abdomen: Soft, bowel sounds present, nontender, nondistended. No hepatosplenomegaly or masses appreciated. Extremities: No clubbing, cyanosis, or edema. Skin: Normal temperature, turgor, and texture; no rash, ulcers, or subcutaneous nodules appreciated. Neurological: Cranial nerves grossly intact. Psychiatric: Normal mood and affect. Alert and oriented to person, place, and time. Objective Labs Result Diagrams: 02/20/20 13:20 02/20/20 13:20 Labs: Laboratory Results - last 24 hr 02/20/20 02/20/20 02/20/20 12:48 13:20 13:20 WBC RBC Hgb Hct MCV MCH MCHC RDW Plt Count Neut % (Auto) Lymph % (Auto) [place] % (Auto) Eos % (Auto) Baso % (Auto) Neut # (Auto) Lymph # (Auto) [place] # (Auto) Eos # (Auto) Baso # (Auto) D-Dimer 254 H Sodium Potassium Chloride Carbon Dioxide BUN Creatinine Estimated GFR BUN/Creatinine Ratio Glucose Lactate Calcium Ferritin Total Bilirubin AST ALT Alkaline Phosphatase Lactate Dehydrogenase Total Creatine Kinase CK-MB (CK-2) CK-MB (CK-2) Rel Index Troponin I C-Reactive Protein NT-Pro-B Natriuret Pep Total Protein Albumin Globulin Albumin/Globulin Ratio Procalcitonin 0.13 COVID-19 PCR Positive H 02/20/20 02/20/20 02/20/20 13:20 13:20 13:20 WBC 7.8 RBC 5.56 Hgb 13.9 Hct 42.4 MCV 76.2 L MCH 24.9 L MCHC 32.7 RDW 15.3 H Plt Count 171 Neut % (Auto) 81.0 H Lymph % (Auto) 11.6 L [place] % (Auto) 7.1 Eos % (Auto) 0.0 L Baso % (Auto) 0.3 Neut # (Auto) 6300 Lymph # (Auto) 900 L [place] # (Auto) 600 Eos # (Auto) 0 Baso # (Auto) 0 D-Dimer Sodium 139 Potassium 3.6 Chloride 103 Carbon Dioxide 28 BUN 18 Creatinine 1.08 Estimated GFR > 60.0 BUN/Creatinine Ratio 16.7 Glucose 101 H Lactate 1.0 Calcium 8.6 Ferritin 92 Total Bilirubin 0.5 AST 60 H ALT 29 Alkaline Phosphatase 83 Lactate Dehydrogenase 1333 H Total Creatine Kinase 731 H CK-MB (CK-2) 0.47 CK-MB (CK-2) Rel Index 0.1 L Troponin I < 0.012 C-Reactive Protein 4.1 H NT-Pro-B Natriuret Pep < 11 Total Protein 8.2 Albumin 4.3 Globulin 3.9 Albumin/Globulin Ratio 1.1 Procalcitonin COVID-19 PCR Assessment & Plan Assessment & Plan narrative: Markus Patel is 29-year-old male with no pertinent past medical history who was in his usual state of health until he contracted COVID-19 and presented to the ED with worsening cough with paroxysms and shortness of breath. 1. Acute COVID-19 viral pneumonia, present on admission. Active. -Patient presented with severe cough, post-tussive emesis with his coughing paroxysms, fever, chills, myalgias, intermittent headache due to coughing, chest pain due to coughing, shortness of breath, diarrhea and loss of smell and taste. Patient is /German and prediabetic making him higher risk of severe disease. -COVID-19 positive. -Inflammatory markers: LDH highly elevated at 1333, CRP highly elevated at 4.1, ferritin normal at 98, and CPK elevated at 731 (not high enough to classify as rhabdomyolysis). -Chest x-ray demonstrated multifocal pulmonary opacities consistent with COVID-19 viral pneumonia. -Patient had brief desaturation with SpO2 86-88% on room air in ED and was started on supplemental oxygen as below. -Continue to monitor closely on telemetry as patient's have propensity for arrhythmias. Patient is currently in mild sinus tachycardia. -Received remdesivir 200 mg IV x1 and dexamethasone 6 mg IV x1 in ED. Continue remdesivir 100 mg IV daily for 5 days and dexamethasone 6 mg IV daily for 10 days or for duration of hospitalization whichever comes first. -Received 1 L of normal saline in ED. Continue normal saline at 125 mL/hr x1 bag. Encourage PO intake of fluids and food. -Continue supportive treatment including: Prone positioning frequently and as often as tolerated and as needed bronchodilators, antipyretics, antiemetics, and antitussives. -Continue negative pressure isolation for airborne and droplet precautions. 2. Acute hypoxemic respiratory failure, present on admission. Active. -Patient had brief desaturation with SpO2 86-88% on room air in ED. -Continue respiratory therapy evaluation and treatment. Continue supplemental oxygen to maintain oxygen saturation > 92%. Continue bronchodilators with albuterol inhaler 2 puffs every 2 hours as needed for shortness of breath or wheezing. Continue prone positioning frequently and as often as tolerated. Continue treatment of COVID-19 viral pneumonia as above. 3. Prediabetes, chronic and newly diagnosed, present on admission. Stable. -Hemoglobin A1c 6.1% indicative of prediabetes. -Continue ACHS blood glucose checks and low-dose correctional scale insulin. -Continue carbohydrate consistent/heart healthy diet. -Ordered auto repair technician consult, pending. -Plan to discuss and educate patient regarding prediabetes. Code status: Full code, surrogate decision maker is patient's mother Dixie Patel VTE prophylaxis: SQ Heparin, SCDs Patient is admitted under inpatient status with expected length of stay greater than 2 midnights due to severity of presenting symptoms, risk of adverse event, and complexity of treatment plan.
[2020-02-20 16:59] LABS: Adenovirus Not Detected (Not Detect); Coronavirus 229E Not Detected (Not Detect); Coronavirus HKU1 Not Detected (Not Detect)
[2020-02-20 17:00] LABS: Bordetella pertussis Not Detected (Not Detect); Chlamydophila pneumoniae Not Detected (Not Detect); Coronavirus NL 63 Not Detected (Not Detect); Coronavirus OC43 Not Detected (Not Detect); Human Metapneumovirus Not Detected (Not Detect); Human Rhinovirus/Enterovirus Not Detected (Not Detect); Influenza A Not Detected (Not Detect); Influenza B Not Detected (Not Detect); Mycoplasma pneumoniae Not Detected (Not Detect); Parainfluenza Virus 1 Not Detected (Not Detect); Parainfluenza Virus 2 Not Detected (Not Detect); Parainfluenza Virus 3 Not Detected (Not Detect); Parainfluenza Virus 4 Not Detected (Not Detect); Respiratory Syncytial Virus Not Detected (Not Detect)
[2020-02-20 17:08] LABS: Magnesium 2.2 mg/dL (1.6-2.3)
[2020-02-20 17:13] LABS: Hemoglobin A1C% w Est Avg Glu 6.2 % (4.0-6.0)
[2020-02-20] MEDS: BENZOCAINE/MENTHOL 1 LOZ PKT 1 EACH PO (17:41)
[2020-02-20] MEDS: POTASSIUM CHLORIDE 20 MEQ TAB 40 MEQ PO (17:41)
[2020-02-20] MEDS: HEPARIN 5,000 UNIT/ML VIAL 5000 UNIT SUBCUT (21:11)
--- NOTE | 2020-02-20 22:01 | PC.NURSE ---
Pt arrived 1615 Alert/oriented Lung shallow, SpO2 95% RA Has occassional dry cough. IVF infusing into the LAC as per orders. w/o incidence. Tele shows ST per ICU staff CBG @ HS 119; no coverage required. Call light w/in reach, pt calls appropriately for needs. Continue w/plan of care.
[2020-02-21] VITALS (18 sets, daily range): BP systolic 110–138; BP diastolic 62–88; PULSE 79–97; RESP 16–28; TEMP 36.3–37.7; O2SAT 90–97
[2020-02-21] MEDS: SODIUM CHLORIDE 0.9% 1,000 ML 125 ML IV ×2 (01:09→06:10)
[2020-02-21 05:52] LABS: Add Manual Diff / Slide Review NO; Basophils Absolute Auto 0 /uL (0-100); Basophils Percent Auto 0.1 % (0-2); Eosinophils Absolute Auto 0 /uL (0-450); Hematocrit 38.8 % (41-53); Hemoglobin 12.7 g/dL (13.5-17.5); Lymphocytes Absolute Auto 800 /uL (1100-4500); Lymphocytes Percent Auto 12.9 % (25-40); Mean Corpuscular HGB Conc 32.7 % (30-36); Mean Corpuscular Hemoglobin 25.1 PG (26-34); Mean Corpuscular Volume 76.7 fL (80-100); Monocytes Absolute Auto 500 /uL (0-900); Monocytes Percent Auto 8.6 % (3-14); Neutrophils Absolute Auto 4600 /uL (1500-7000); Neutrophils Percent Auto 78.4 % (50-75); Platelet Count 178 X10^3/uL (150-400); Red Blood Cell Count 5.06 X10^6/uL (4.5-5.9); Red Cell Distribution Width 14.9 % (11.6-14.8); White Blood Cell Count 5.8 X10^3/uL (4.5-11.0)
[2020-02-21 06:03] LABS: Alanine Aminotransferase 27 IU/L (<50); Albumin 3.7 g/dL (3.5-5.0); Albumin Globulin Ratio 1.1 (1.0-2.8); Alkaline Phosphatase 69 U/L (38-126); Aspartate Aminotransferase 49 IU/L (17-59); BUN Creatinine Ratio 20.8 (6-22); Bilirubin Total 0.4 mg/dL (0.2-1.3); Blood Urea Nitrogen 15 mg/dL (9-20); Calcium 8.3 mg/dL (8.4-10.2); Carbon Dioxide 25 mmol/L (22-32); Chloride 110 mmol/L (98-107); Estimated Glomerular Filt Rate > 60.0 mL/min (>60); Globulin 3.5 g/dL (1.7-4.1); Glucose 125 mg/dL (70-100); HEMOLYSIS < 15 (0-50); Magnesium 2.1 mg/dL (1.6-2.3); Potassium 4.1 mmol/L (3.4-5.1); Sodium 141 mmol/L (137-145); Total Protein 7.2 g/dL (6.3-8.2)
[2020-02-21] MEDS: ACETAMINOPHEN 325 MG TABLET 650 MG PO (06:11)
[2020-02-21 06:21] LABS: Procalcitonin 0.05 ng/mL (<0.5)
[2020-02-21] MEDS: HEPARIN 5,000 UNIT/ML VIAL 5000 UNIT SUBCUT ×2 (08:37→21:27)
[2020-02-21] MEDS: DEXAMETHASONE 10 MG/ML VIAL 6 MG IV (08:37)
--- NOTE | 2020-02-21 09:23 | PC.NURSE ---
Addendum entered by Delma Leiva R.N. 02/21/20 13:06: Attempted to wean O2 from 2L via NC to 1L, O2 sat decreased to 90%, returned to 2L via NC, sats 92-93%. Sporadic dry cough noted. Poor appetite during lunch. Sleeping between care. Addendum entered by Delma Leiva R.N. 02/21/20 10:33: Weaned from 4L via NC to 2L via NC, O2 sat 93% while sleeping prone. Original Note: Day shift note: Patient awake, alert, and cooperative. Received on O2 at 4L via NC, sats 93%. SOB with activity, up OOB to BR, steady gait. Refused SCDs this am, discussed importance of use, however moving in bed, ambulating to BR, and performing foot pumps in bed as instructed. No C/O pain or discomfort. Patient states feels better than day of admission, states breathing effort is improved and generalized aches. Discussed importance of staying prone in bed. IVf infusing. Poor appetite, encouraged fluids.
--- NOTE | 2020-02-21 12:01 | CM.DANOTE ---
DCP/Assessment: Reviewed chart. Patient is a 29yr old male admitted to [facility] with COVID-19. PCP listed is Jp Nielsen. Primary payor is 1)[facility]. Spoke with provider/Dr. Burks re: patient's condition. Currently patient requiring small amount of 02. Patient and family all tested positive for COVID. Per notes, both parents currently hospitalized. Patient's grandmother apparently yesterday 02-20-20 of COVID? CRIME LAB ANALYST did not enter room today. Will attempt call to patient when more medically appropriate to do so. P: Anticipate home when stable. Patient will be required to quarantine per state guidelines. PARMJIT Harrison Discharge Planning/Care Management CM Discharge Assessment Start: 02/21/20 11:50 Freq: Status: Active Protocol: Document 02/21/20 11:50 KJS (Rec: 02/21/20 12:01 KJS [id number]) Discharge Planning Assessment Assigned Tube Washer PARMJIT Harrison Contact Information Dixie Patel (mother) ph# [phone] Advance Directives? No History Provided By Medical Record Prior Living Arrangements House Household Members family Independent with ADL's Yes Is patient alert and oriented? Yes Discharge Plan Home Transportation Arrangement Unclear at this time. Patient and family COVID positive. Patient's parents both hospitalized. Review Status In Process Next Review Type Continued Stay Review
[2020-02-21] MEDS: REMDESIVIR 100 MG in SODIUM CHLORIDE 0.9% 230 ML 250 ML IV (13:49)
--- NOTE | 2020-02-21 14:06 | P.PN_ITS ---
Subjective Subjective Date Patient Seen: 02/21/20 Interval history: Markus Patel is 29-year-old male with no pertinent past medical history who was in his usual state of health until he contracted COVID- 19 and presented to the ED with worsening cough with paroxysms and shortness of breath. The patient is lying in bed sleeping on his side. Per nursing staff, the pat ient proned the majority of the night. He reports that he feels slightly better overall. He continues to have nonproductive cough which is less severe and without coughing paroxysms. Patient continued to have fever and chills overnight which was controlled with acetaminophen. He endorses mild sore throat. He no longer feels short of breath and his myalgias have resolved. He currently denies headache, nasal congestion or rhinitis, chest pain, shortness of breath, abdominal pain, nausea, vomiting, fevers, chills, or dysuria. He continues to have minimal loose stool. He is voiding without difficulty. He is up ambulating minimally without assistance. Exam Vital Signs (past 8 hours): - 02/21/20 06:11 02/21/20 08:34 02/21/20 09:05 Temperature 99.8 F H 97.7 F Pulse Rate 79 83 Respiratory Rate 16 20 Blood Pressure 138/88 Pulse Oximetry 93 93 02/21/20 10:00 02/21/20 10:27 02/21/20 12:45 Temperature Pulse Rate Respiratory Rate Blood Pressure Pulse Oximetry 94 93 90 L 02/21/20 13:00 Temperature 98.2 F Pulse Rate 82 Respiratory Rate 28 H Blood Pressure 120/76 Pulse Oximetry 93 Oxygen Delivery Method Nasal Cannula Oxygen Flow Rate 2 Narrative Exam Narrative: General: Young male lying in bed and in no acute distress, acutely ill, well- developed, well-nourished, appropriately interactive. HEENT: Normocephalic, atraumatic. External ears without defect. Pupils equal, round, and reactive to light. Anicteric sclerae, moist conjunctivae, and no lid lag. Oropharynx free of erythema and cobble stoning with moist mucosa. Neck: Supple with full range of motion. No lymphadenopathy or thyromegaly. Cardiovascular: Regular rhythm and rate without murmurs, rubs, or gallops appreciated. Pulmonary: Diminished throughout but clear to auscultation bilaterally without crackles, wheezes, or rhonchi. Normal respiratory effort with no use of accessory muscles. Abdomen: Soft, bowel sounds present, nontender, nondistended. No hepatosp lenomegaly or masses appreciated. Extremities: No clubbing, cyanosis, or edema. Skin: Normal temperature, turgor, and texture; no rash, ulcers, or subcutaneous nodules appreciated. Neurological: Cranial nerves grossly intact. Psychiatric: Normal mood and affect. Alert and oriented to person, place, and time. Objective Labs Result Diagrams: 02/21/20 05:32 02/21/20 05:32 Labs: Laboratory Results - last 24 hr 02/20/20 02/20/20 02/20/20 13:20 13:20 13:20 WBC RBC Hgb Hct MCV MCH MCHC RDW Plt Count Neut % (Auto) Lymph % (Auto) [place] % (Auto) Eos % (Auto) Baso % (Auto) Neut # (Auto) Lymph # (Auto) [place] # (Auto) Eos # (Auto) Baso # (Auto) Sodium 139 Potassium 3.6 Chloride 103 Carbon Dioxide 28 BUN 18 Creatinine 1.08 Estimated GFR > 60.0 BUN/Creatinine Ratio 16.7 Glucose 101 H Hemoglobin A1c Lactate 1.0 Calcium 8.6 Magnesium Ferritin 92 Total Bilirubin 0.5 AST 60 H ALT 29 Alkaline Phosphatase 83 Lactate Dehydrogenase 1333 H Total Creatine Kinase 731 H CK-MB (CK-2) 0.47 CK-MB (CK-2) Rel Index 0.1 L Troponin I < 0.012 C-Reactive Protein 4.1 H NT-Pro-B Natriuret Pep < 11 Total Protein 8.2 Albumin 4.3 Globulin 3.9 Albumin/Globulin Ratio 1.1 Procalcitonin 0.13 Chlamy pneumoniae PCR Adenovirus (PCR) B.parapertussis DNA PCR Coronavirus OC43 (PCR) Coronavirus HKU1 (PCR) Coronavirus 229E (PCR) Coronavirus NL63 (PCR) Human Metapneumovir PCR Influenza Type A (PCR) Influenza Type B (PCR) M. pneumoniae (PCR) Parainfluenza 1 (PCR) Parainfluenza 2 (PCR) Parainfluenza 3 (PCR) Parainfluenza 4 (PCR) RSV (PCR) Entero/Rhino (PCR) 02/20/20 02/20/20 02/20/20 13:20 13:20 15:10 WBC RBC Hgb Hct MCV MCH MCHC RDW Plt Count Neut % (Auto) Lymph % (Auto) [place] % (Auto) Eos % (Auto) Baso % (Auto) Neut # (Auto) Lymph # (Auto) [place] # (Auto) Eos # (Auto) Baso # (Auto) Sodium Potassium Chloride Carbon Dioxide BUN Creatinine Estimated GFR BUN/Creatinine Ratio Glucose Hemoglobin A1c 6.2 H Lactate Calcium Magnesium 2.2 Ferritin Total Bilirubin AST ALT Alkaline Phosphatase Lactate Dehydrogenase Total Creatine Kinase CK-MB (CK-2) CK-MB (CK-2) Rel Index Troponin I C-Reactive Protein NT-Pro-B Natriuret Pep Total Protein Albumin Globulin Albumin/Globulin Ratio Procalcitonin Chlamy pneumoniae PCR Not detected Adenovirus (PCR) Not detected B.parapertussis DNA PCR Not detected Coronavirus OC43 (PCR) Not detected Coronavirus HKU1 (PCR) Not detected Coronavirus 229E (PCR) Not detected Coronavirus NL63 (PCR) Not detected Human Metapneumovir PCR Not detected Influenza Type A (PCR) Not detected Influenza Type B (PCR) Not detected M. pneumoniae (PCR) Not detected Parainfluenza 1 (PCR) Not detected Parainfluenza 2 (PCR) Not detected Parainfluenza 3 (PCR) Not detected Parainfluenza 4 (PCR) Not detected RSV (PCR) Not detected Entero/Rhino (PCR) Not detected 02/21/20 02/21/20 02/21/20 05:32 05:32 05:32 WBC 5.8 RBC 5.06 Hgb 12.7 L Hct 38.8 L MCV 76.7 L MCH 25.1 L MCHC 32.7 RDW 14.9 H Plt Count 178 Neut % (Auto) 78.4 H Lymph % (Auto) 12.9 L [place] % (Auto) 8.6 Eos % (Auto) 0.0 L Baso % (Auto) 0.1 Neut # (Auto) 4600 Lymph # (Auto) 800 L [place] # (Auto) 500 Eos # (Auto) 0 Baso # (Auto) 0 Sodium 141 Potassium 4.1 Chloride 110 H Carbon Dioxide 25 BUN 15 Creatinine 0.72 Estimated GFR > 60.0 BUN/Creatinine Ratio 20.8 Glucose 125 H Hemoglobin A1c Lactate Calcium 8.3 L Magnesium 2.1 Ferritin Total Bilirubin 0.4 AST 49 ALT 27 Alkaline Phosphatase 69 Lactate Dehydrogenase Total Creatine Kinase CK-MB (CK-2) CK-MB (CK-2) Rel Index Troponin I C-Reactive Protein NT-Pro-B Natriuret Pep Total Protein 7.2 Albumin 3.7 Globulin 3.5 Albumin/Globulin Ratio 1.1 Procalcitonin 0.05 Chlamy pneumoniae PCR Adenovirus (PCR) B.parapertussis DNA PCR Coronavirus OC43 (PCR) Coronavirus HKU1 (PCR) Coronavirus 229E (PCR) Coronavirus NL63 (PCR) Human Metapneumovir PCR Influenza Type A (PCR) Influenza Type B (PCR) M. pneumoniae (PCR) Parainfluenza 1 (PCR) Parainfluenza 2 (PCR) Parainfluenza 3 (PCR) Parainfluenza 4 (PCR) RSV (PCR) Entero/Rhino (PCR) [facility] Medical History Patient denies medical problems Surgical History No pertinent past surgical history Family History Father Diabetes mellitus Asthma Mother Healthy adult Sister Asthma Social History household members: family Smoking Status: Never smoker Assessment & Plan Assessment & Plan narrative: Markus Patel is 29-year-old male with no pertinent past medical history who was in his usual state of health until he contracted COVID- 19 and presented to the ED with worsening cough with paroxysms and shortness of breath. 1. Acute COVID-19 viral pneumonia, present on admission. Active. -Patient presented with severe cough, post-tussive emesis with his coughing paroxysms, fever, chills, myalgias, intermittent headache due to coughing, chest pain due to coughing, shortness of breath, diarrhea and loss of smell and taste. Patient is /Belgian and prediabetic making him higher risk of severe disease. -COVID-19 positive. Respiratory PCR negative. -Inflammatory markers: LDH highly elevated at 1333-->1227, CRP highly elevated at 4.1-->4.6, ferritin normal at 98-->97, and CPK elevated at 731-->628 (does not classify as rhabdomyolysis). -Chest x-ray demonstrated multifocal pulmonary opacities consistent with COVID- 19 viral pneumonia. -Patient had brief desaturation with SpO2 86-88% on room air in ED and was started on supplemental oxygen as below. -Continue to monitor closely on telemetry as patient's have propensity for arrhythmias. Patient is currently in mild sinus tachycardia. -Received remdesivir 200 mg IV x1 and dexamethasone 6 mg IV x1 in ED. Continue remdesivir 100 mg IV daily for 5 days and dexamethasone 6 mg IV daily for 10 days or for duration of hospitalization whichever comes first. -Received 1 L of normal saline in ED. Continued IV fluids until adequately hydrated then discontinued. Encourage PO intake of fluids and food. -Continue supportive treatment including: Prone positioning frequently and as often as tolerated; bronchodilators, antipyretics, antiemetics, and antitussives as needed. -Continue negative pressure isolation for airborne and droplet precautions. 2. Acute hypoxemic respiratory failure, present on admission. Active. -Patient had brief desaturation with SpO2 86-88% on room air in ED. -Continue respiratory therapy evaluation and treatment. Continue supplemental oxygen to maintain oxygen saturation 92%. Patient has required 2-4 L to main tain oxygen saturations 92% or above. Continue bronchodilators with albuterol inhaler 2 puffs every 2 hours as needed for shortness of breath or wheezing. Continue prone positioning frequently and as often as tolerated. Continue treatment of COVID-19 viral pneumonia as above. 3. Prediabetes, chronic and newly diagnosed, present on admission. Stable. -Hemoglobin A1c 6.2% indicative of prediabetes. -Continue [facility] blood glucose checks and low-dose correctional scale insulin. -Continue carbohydrate consistent/heart healthy diet. -Ordered marine habitat resource specialist consult, pending. Code status: Full code, surrogate decision maker is patient's mother Dixie Patel VTE prophylaxis: SQ Heparin, SCDs Disposition: Patient remains hospitalized to treat hypoxemic respiratory failure and COVID-19 viral pneumonia.
[2020-02-21 15:12] LABS: C-Reactive Protein Quant 4.6 mg/dL (<1.0); Creatine Kinase 628 U/L (55-170); Lactate Dehydrogenase 1227 U/L (313-618)
[2020-02-21 16:24] LABS: Ferritin 97 ng/mL (18-464)
[2020-02-21] MEDS: BENZOCAINE/MENTHOL 1 LOZ PKT 1 EACH PO (17:24)
[2020-02-21] MEDS: CODEINE/GUAIFENESIN LIQUID 5ML UDC 5 ML PO (17:24)
[2020-02-21] MEDS: INSULIN ASPART 100 UNIT/ML INSULN PEN SUBCUT (17:45)
[2020-02-21 21:04] LABS: HCO3 ABG 20 mmol/L (22-26); Oxygen Saturation ABG 92 % (95-100); PCO2 ABG 31.2 mmHg (35-45); PO2 ABG 63 mmHg (80-100); TCO2 ABG 21 mmol/L (21-31); pH ABG 7.41 (7.35-7.45)
[2020-02-21 21:05] LABS: Fractionated Inspired Oxygen 36
[2020-02-21] MEDS: LORazepam 2 MG/ML INJ (22:50)
[2020-02-21 22:56] LABS: PCO2 ABG 31.3 mmHg (35-45); PO2 ABG 62 mmHg (80-100); pH ABG 7.42 (7.35-7.45)
[2020-02-21 22:57] LABS: Fractionated Inspired Oxygen 45; Oxygen Saturation ABG 92 % (95-100); TCO2 ABG 21 mmol/L (21-31)
--- NOTE | 2020-02-21 23:30 | PC.NURSE ---
a&ox3. pt was on 3L 95% on prone position around dinner time. intermittent cough, administered guaifenecin and cepacol. afebrile. no muscle aches. Pt got up to the BSC with RT and he destat 80's, placed on 6L 96%, now on heated hi-flow fiO2 50%, 50 O2. administered ativan IV for anxiety.
[2020-02-22] VITALS (17 sets, daily range): BP systolic 112–132; BP diastolic 69–79; PULSE 77–95; RESP 20–27; TEMP 36.2–36.9; O2SAT 84–98
[2020-02-22] MEDS: CODEINE/GUAIFENESIN LIQUID 5ML UDC 5 ML PO ×2 (00:04→06:41)
[2020-02-22 01:13] LABS: HCO3 ABG 21 mmol/L (22-26); PCO2 ABG 31.9 mmHg (35-45); PO2 ABG 77 mmHg (80-100); pH ABG 7.42 (7.35-7.45)
[2020-02-22 01:14] LABS: Fractionated Inspired Oxygen 50; Oxygen Saturation ABG 96 % (95-100); TCO2 ABG 22 mmol/L (21-31)
--- NOTE | 2020-02-22 06:16 | PC.NURSE ---
Gallery Manager Note-Patient has slept prone or semi-prone throughout the night, on HHFNC FIO2 .50/50L, SpO2 90-98%, RR 20s, found to be mid 80s on RA when he pushed the NC off nares while asleep, recovered to >90% quickly. SR on telemetry, afebrile, codeine/guaifenesin elixer given for intermittent dry cough.
[2020-02-22] MEDS: BENZONATATE 100 MG CAPSULE PO (06:41)
[2020-02-22] MEDS: ALBUTEROL HFA 200 PUFF/18 GM INH (COVID POS/VENT PTS) INH ×5 (07:40→23:30)
[2020-02-22] MEDS: DEXAMETHASONE 10 MG/ML VIAL 6 MG IV (07:55)
[2020-02-22] MEDS: HEPARIN 5,000 UNIT/ML VIAL 5000 UNIT SUBCUT ×2 (07:56→21:04)
[2020-02-22] MEDS: SODIUM CHLORIDE 0.9% FLUSH 10 ML IV ×2 (08:49→21:04)
[2020-02-22 09:19] LABS: BUN Creatinine Ratio 23.9 (6-22); Blood Urea Nitrogen 16 mg/dL (9-20); C-Reactive Protein Quant 1.9 mg/dL (<1.0); Calcium 8.4 mg/dL (8.4-10.2); Carbon Dioxide 28 mmol/L (22-32); Chloride 107 mmol/L (98-107); Creatine Kinase 319 U/L (55-170); Estimated Glomerular Filt Rate > 60.0 mL/min (>60); Glucose 121 mg/dL (70-100); HEMOLYSIS < 15 (0-50); Lactate Dehydrogenase 1046 U/L (313-618); Potassium 3.7 mmol/L (3.4-5.1); Sodium 142 mmol/L (137-145)
[2020-02-22 09:23] LABS: CKMB % Relative Index 0.2 % (1.5-5.0); Creatine Kinase MB 0.65 ng/mL (<2.37)
[2020-02-22 10:18] LABS: HCO3 ABG 23 mmol/L (22-26); Oxygen Saturation ABG 95 % (95-100); PCO2 ABG 36.1 mmHg (35-45); PO2 ABG 72 mmHg (80-100); TCO2 ABG 24 mmol/L (21-31); pH ABG 7.42 (7.35-7.45)
[2020-02-22 10:19] LABS: Fractionated Inspired Oxygen 50
--- NOTE | 2020-02-22 13:29 | PC.NURSE ---
Addendum entered by Cholo Freeman R.N. 02/22/20 14:08: Spoke with Dr. Burks. Reported assessment findings, decreased SPO2, increased WOB with minimal exertion. Dr. Burks states goal is SPO2 greater than or equal to 88%, paO2 greater than 55. States that pts fio2 may be temporarily increased during activity to support respiratory effort/O2 sats. Original Note: Rec'd pt in bed resting in prone position. SPO2 ranging 94-96% in prone on HHFNC 50% Fio2 50L. Pt is able to turn himself independently in bed and does so to eat breakfast. With minimal activity (turning from prone to supine), pt is tachypneic with RR 30s, using accessory muscles to breathe, with SPO2 trending down to 88-89%. RT increased Fio2 to 56% this AM based on abg showing po2 72. Dr. Burks requested it be turned back to 50% Fio2 stating po2 72 is adequate. RT decreased Fio2 to 50% at noon. Pt sitting bolt upright with lunch tray, tachypneic with labored breathing RR in the 30s. He would like to eat before going back to prone position. Pt able to maintain Spo2 88-90%, but after about 45 minutes in bolt upright position, SPO2 noted to be 84-87%. Assisted pt to prone position and placed pillows for comfort. SPO2 improved after about 10 minutes to 98% with decreased WOB, RR 26.
[2020-02-22] MEDS: REMDESIVIR 100 MG in SODIUM CHLORIDE 0.9% 230 ML 250 ML IV (14:12)
--- NOTE | 2020-02-22 14:44 | P.PN_ITS ---
Subjective Subjective Date Patient Seen: 02/22/20 Interval history: Markus Patel is 29-year-old male with no pertinent past medical history who was in his usual state of health until he contracted COVID- 19 and presented to the ED with worsening cough with paroxysms and shortness of breath. The patient is lying in bed prone. He reports he is somewhat uncomfortable p roning and requests more pillows to prone more comfortably. Overnight his SpO2 dropped to 90% and his supplemental oxygen was increased from 4 L to 6 L. ABG was performed with a PaO2 of 63. He was switched from supplemental oxygen to heated high-flow due to mild tachypnea and more work of breathing. He appears comfortable on heated high-flow and PaO2 has been well above 55, therefore, will plan to start titrating down on FiO2 with goal at rest PaO2 55/SpO2 88% and respiratory rate < 30. He continues to have mild tachypnea with activity but respiratory rate well below 30. Continue to encourage prone positioning with very short breaks for meals and restroom. He continues to have nonproductive cough which is less severe and no longer having cough paroxysms. He has been afebrile for over 36 hours. His sore throat is resolving. He denies shortness of breath. He currently denies headache, nasal congestion or rhinitis, chest pain, shortness of breath, abdominal pain, nausea, vomiting, fevers, chills, dysuria, diarrhea or constipation. He reports he has a good appetite and he ate most of his breakfast. He is voiding and eliminating without difficulty. He is up ambulating minimally without assistance. Exam Vital Signs (past 8 hours): - 02/22/20 08:00 02/22/20 10:10 02/22/20 12:00 Temperature 97.9 F 98.5 F Pulse Rate 92 H 82 Respiratory Rate 26 H 27 H Blood Pressure 119/77 112/78 Pulse Oximetry 92 97 91 02/22/20 12:12 02/22/20 12:13 02/22/20 13:15 Temperature Pulse Rate 92 H Respiratory Rate 25 H Blood Pressure Pulse Oximetry 92 92 84 L 02/22/20 13:28 Temperature Pulse Rate Respiratory Rate Blood Pressure Pulse Oximetry 98 Fraction of Inspired Oxygen 55 Oxygen Delivery Method Heated High Flow Oxygen Flow Rate 50 Narrative Exam Narrative: General: Young male lying in bed prone and in no acute distress, appears acutely ill, appropriately interactive. HEENT: Normocephalic, atraumatic. External ears without defect. Pupils equal, round, and reactive to light. Anicteric sclerae, moist conjunctivae, and no lid lag. Oropharynx free of erythema and cobble stoning with moist mucosa. Neck: Supple with full range of motion. No lymphadenopathy or thyromegaly. Cardiovascular: Regular rhythm and rate without murmurs, rubs, or gallops appreciated. Pulmonary: Diminished throughout with poor air movement but clear to auscultation bilaterally without crackles, wheezes, or rhonchi. Normal respiratory effort with no use of accessory muscles at rest. Abdomen: Soft, bowel sounds present, nontender, nondistended. No hepatosplenomegaly or masses appreciated. Extremities: No clubbing, cyanosis, or edema. Skin: Normal temperature, turgor, and texture; no rash, ulcers, or subcutaneous nodules appreciated. Neurological: Cranial nerves grossly intact. Psychiatric: Normal mood and affect. Alert and oriented to person, place, and time. Objective Labs Result Diagrams: 02/21/20 05:32 02/22/20 08:45 Labs: Laboratory Results - last 24 hr 02/21/20 02/21/20 02/21/20 05:32 05:32 20:30 ABG pH 7.41 ABG pCO2 31.2 L ABG pO2 63 L ABG HCO3 20 L ABG Total CO2 21 ABG O2 Saturation 92 L ABG Base Excess -5.0 L FiO2 36 Sodium Potassium Chloride Carbon Dioxide BUN Creatinine Estimated GFR BUN/Creatinine Ratio Glucose Calcium Ferritin 97 Lactate Dehydrogenase 1227 H Total Creatine Kinase 628 H CK-MB (CK-2) CK-MB (CK-2) Rel Index C-Reactive Protein 4.6 H 02/21/20 02/22/20 02/22/20 21:55 00:30 07:50 ABG pH 7.42 7.42 7.42 ABG pCO2 31.3 L 31.9 L 36.1 ABG pO2 62 L 77 L 72 L ABG HCO3 -4 L 21 L 23 ABG Total CO2 21 22 24 ABG O2 Saturation 92 L 96 95 ABG Base Excess -4.0 L -4.0 L -1.0 FiO2 45 50 50 Sodium Potassium Chloride Carbon Dioxide BUN Creatinine Estimated GFR BUN/Creatinine Ratio Glucose Calcium Ferritin Lactate Dehydrogenase Total Creatine Kinase CK-MB (CK-2) CK-MB (CK-2) Rel Index C-Reactive Protein 02/22/20 08:45 ABG pH ABG pCO2 ABG pO2 ABG HCO3 ABG Total CO2 ABG O2 Saturation ABG Base Excess FiO2 Sodium 142 Potassium 3.7 Chloride 107 Carbon Dioxide 28 BUN 16 Creatinine 0.67 Estimated GFR > 60.0 BUN/Creatinine Ratio 23.9 H Glucose 121 H Calcium 8.4 Ferritin Lactate Dehydrogenase 1046 H Total Creatine Kinase 319 H D CK-MB (CK-2) 0.65 CK-MB (CK-2) Rel Index 0.2 L C-Reactive Protein 1.9 H PFSH Medical History Patient denies medical problems Surgical History No pertinent past surgical history Family History Father Diabetes mellitus Asthma Mother Healthy adult Sister Asthma Social History household members: family Smoking Status: Never smoker Assessment & Plan Assessment & Plan narrative: Markus Patel is 29-year-old male with no pertinent past medical history who was in his usual state of health until he contracted COVID- 19 and presented to the ED with worsening cough with paroxysms and shortness of breath. 1. Acute COVID-19 viral pneumonia, present on admission. Active. -Patient presented with severe cough, post-tussive emesis with his coughing paroxysms, fever, chills, myalgias, intermittent headache due to coughing, chest pain due to coughing, shortness of breath, diarrhea and loss of smell and taste. Patient is /[place] and prediabetic making him higher risk of severe disease. -COVID-19 positive. Respiratory PCR negative. -Inflammatory markers: LDH highly elevated at 1333-->1227, CRP highly elevated at 4.1-->4.6, ferritin normal at 98-->97, and CPK elevated at 731-->628 (does not classify as rhabdomyolysis). -Chest x-ray demonstrated multifocal pulmonary opacities consistent with COVID- 19 viral pneumonia. -Patient had brief desaturation with SpO2 86-88% on room air in ED and was started on supplemental oxygen as below. -Continue to monitor closely on telemetry as patient's have propensity for arrhythmias. Patient is currently in sinus rhythm. -Received remdesivir 200 mg IV x1 and dexamethasone 6 mg IV x1 in ED. Continue remdesivir 100 mg IV daily for 5 days and dexamethasone 6 mg IV daily for 10 days or for duration of hospitalization whichever comes first. -Received 1 L of normal saline in ED. Continued IV fluids until adequately hydrated then discontinued. Encourage PO intake of fluids and food. -Continue supportive treatment including: Prone positioning frequently and as often as tolerated (goal 12-16 hours in 24 hour period); bronchodilators, antipy retics, antiemetics, and antitussives as needed. -Continue negative pressure isolation for airborne and droplet precautions. -Discussed case with on-call case assembler/director money at [facility], Dr. Lema, who agrees with current plan of care. Recommends continue supportive treatment with oxygen as necessary to maintain at rest a PaO2 of 55/SpO2 88% and respiratory rate < 30. Consider diuresing if patient is fluid positive in order to improve oxygenation. Does not recommend trending inflammatory markers. Do not intubate unless patient continues to decompensate, heated high-flow has been maximized and/or continues to have severe hypoxemia and is at high risk of imminent failure. [facility] has beds available and they would be happy to accept if patient requires intubation and higher level of care. 2. Acute hypoxemic respiratory failure, present on admission. Active. -Patient had brief desaturation with SpO2 86-88% on room air in ED. -Continue respiratory therapy evaluation and treatment. Continue heated high- flow oxygen with goal at rest PaO2 55/SpO2 88% and respiratory rate < 30. May increase oxygen requirement as necessary during activity or with meals to avoid decompensation and return to prior settings afterward. Continue to monitor ABG daily and as needed. Continue bronchodilators with albuterol inhaler 2 puffs every 2 hours as needed for shortness of breath or wheezing. Continue prone positioning frequently and as often as tolerated (goal 12-16 hours in 24 hour period). Continue treatment of COVID-19 viral pneumonia as above. -Ordered furosemide 20 mg IV x1 to optimize oxygenation as patient is net +3 L. 3. Prediabetes, chronic and newly diagnosed, present on admission. Stable. -Hemoglobin A1c 6.2% indicative of prediabetes. -Continue ACHS blood glucose checks and low-dose correctional scale insulin. -Continue carbohydrate consistent/heart healthy diet. -Consider dietitian consult once patient recovers from acute illness with COVID- 19 as above. Code status: Full code, surrogate decision maker is patient's mother Dixie Patel VTE prophylaxis: SQ Heparin, SCDs Disposition: Patient remains hospitalized to treat hypoxemic respiratory failure and COVID-19 viral pneumonia.
[2020-02-22] MEDS: FUROSEMIDE 20 MG/2 ML VIAL IV (15:32)
--- NOTE | 2020-02-22 16:26 | DIET.PN ---
Dietary Progress Note Pt c A1c 6.[address] sending up ONS Ensure Max once daily to support protein needs while maintaining CCD2 diet reccs as this is bariatric formula, provides 30g PRO and only 150 kcals, 1g sugar.
[2020-02-23] VITALS (17 sets, daily range): BP systolic 112–134; BP diastolic 63–90; PULSE 75–101; RESP 20–26; TEMP 36.1–36.9; O2SAT 92–100
[2020-02-23] MEDS: POTASSIUM CHLORIDE 20 MEQ TAB 40 MEQ PO (00:09)
--- NOTE | 2020-02-23 04:16 | RT ---
At the start of the shift walked into patients room and he was sating low 90s when i walked in so I increased oxygen.
[2020-02-23 05:13] LABS: Add Manual Diff / Slide Review NO; Basophils Absolute Auto 0 /uL (0-100); Basophils Percent Auto 0.1 % (0-2); Eosinophils Absolute Auto 0 /uL (0-450); Hematocrit 40.4 % (41-53); Lymphocytes Absolute Auto 1300 /uL (1100-4500); Lymphocytes Percent Auto 13.8 % (25-40); Mean Corpuscular HGB Conc 32.1 % (30-36); Mean Corpuscular Hemoglobin 24.7 PG (26-34); Monocytes Absolute Auto 1200 /uL (0-900); Monocytes Percent Auto 12.5 % (3-14); Neutrophils Absolute Auto 7000 /uL (1500-7000); Neutrophils Percent Auto 73.6 % (50-75); Platelet Count 265 X10^3/uL (150-400); Red Blood Cell Count 5.24 X10^6/uL (4.5-5.9); Red Cell Distribution Width 14.8 % (11.6-14.8); White Blood Cell Count 9.5 X10^3/uL (4.5-11.0)
[2020-02-23 05:22] LABS: BUN Creatinine Ratio 31.3 (6-22); Blood Urea Nitrogen 21 mg/dL (9-20); Calcium 8.4 mg/dL (8.4-10.2); Carbon Dioxide 30 mmol/L (22-32); Chloride 106 mmol/L (98-107); Estimated Glomerular Filt Rate > 60.0 mL/min (>60); Glucose 120 mg/dL (70-100); HEMOLYSIS 39 (0-50); Magnesium 2.3 mg/dL (1.6-2.3); Potassium 4.5 mmol/L (3.4-5.1); Sodium 141 mmol/L (137-145)
[2020-02-23] MEDS: ALBUTEROL HFA 200 PUFF/18 GM INH (COVID POS/VENT PTS) INH ×5 (06:32→23:18)
--- NOTE | 2020-02-23 06:39 | PC.NURSE ---
Licensed Acupuncturist Note-Patient slept most of the night prone, occasionally lying on either side, SpO2 87-97% on .50 FIO2/50L of HHFNC, RR 20s, denies dyspnea, cough minimal, afebrile, SB/SR. Appetite slightly improved.
[2020-02-23] MEDS: SODIUM CHLORIDE 0.9% FLUSH 10 ML IV ×2 (09:11→21:44)
[2020-02-23] MEDS: DEXAMETHASONE 10 MG/ML VIAL 6 MG IV (09:13)
[2020-02-23] MEDS: HEPARIN 5,000 UNIT/ML VIAL 5000 UNIT SUBCUT ×2 (09:13→21:44)
--- NOTE | 2020-02-23 09:58 | PC.NURSE ---
Day shift: Order to d/c cardiac tele from reported to Dr Garcia that the tele leads come off because Pt moves himself to prone position and to side and to his back and they become dislodged. This will decrease the amount of time staff has to enter room and will limit exposure. Pt has been making his needs kown proper. denies any pain or nausea. Encouraged to use I.S. as directed.
--- NOTE | 2020-02-23 13:46 | PM.PN.1 ---
Subjective Subjective Date Patient Seen: 02/23/20 Interval history: Markus Patel is 29-year-old male with no pertinent past medical history who was in his usual state of health until he contracted COVID-19 and presented to the ED with worsening cough with paroxysms and shortness of breath. The patient is lying in bed comfortably. Overall he he feels much improved and all of his symptoms have nearly resolved other than mild intermittent dry minimally productive cough. His cough paroxysms, fever, myalgias, sore throat, anosmia and hypogeusia have resolved. He continues to prone the majority of each shift. He appears comfortable on heated high-flow and plan to continue to titrate down slowly with current settings on FiO2 0.45 and 50 L flow. He is no longer tachypneic and his work of breathing is much improved after chronic proning and diuresis. He is still 4 L positive and will continue to diurese today. He currently denies headache, nasal congestion or rhinitis, chest pain, shortness of breath, abdominal pain, nausea, vomiting, fevers, chills, dysuria, diarrhea or constipation. He continues to have a good appetite. He is voiding and eliminating without difficulty. He is up ambulating minimally without assistance. Exam Vital Signs (past 8 hours): - 02/23/20 06:33 02/23/20 08:00 02/23/20 09:33 Temperature 97.3 F L Pulse Rate 83 Respiratory Rate 22 Blood Pressure 119/67 Pulse Oximetry 96 100 93 02/23/20 10:15 02/23/20 12:00 02/23/20 12:38 Temperature 98.4 F Pulse Rate 97 H 82 Respiratory Rate 24 20 Blood Pressure 118/69 Pulse Oximetry 92 95 95 Fraction of Inspired Oxygen 50 Oxygen Delivery Method Heated High Flow Oxygen Flow Rate 50 Narrative Exam Narrative: General: Young male lying in bed prone and in no acute distress, appears acutely ill, appropriately interactive. HEENT: Normocephalic, atraumatic. External ears without defect. Pupils equal, round, and reactive to light. Anicteric sclerae, moist conjunctivae, and no lid lag. Oropharynx free of erythema and cobble stoning with moist mucosa. Neck: Supple with full range of motion. No lymphadenopathy or thyromegaly. Cardiovascular: Regular rhythm and rate without murmurs, rubs, or gallops appreciated. Pulmonary: Diminished throughout with better air movement and clear to auscultation bilaterally without crackles, wheezes, or rhonchi. Normal respiratory effort with no use of accessory muscles. Abdomen: Soft, bowel sounds present, nontender, nondistended. No hepatosplenomegaly or masses appreciated. Extremities: No clubbing, cyanosis, or edema. Skin: Normal temperature, turgor, and texture; no rash, ulcers, or subcutaneous nodules appreciated. Neurological: Cranial nerves grossly intact. Psychiatric: Normal mood and affect. Alert and oriented to person, place, and time. Objective Labs Result Diagrams: 02/23/20 04:46 02/23/20 04:46 Labs: Laboratory Results - last 24 hr 02/23/20 02/23/20 04:46 04:46 WBC 9.5 D RBC 5.24 Hgb 13.0 L Hct 40.4 L MCV 77.0 L MCH 24.7 L MCHC 32.1 RDW 14.8 Plt Count 265 Neut % (Auto) 73.6 Lymph % (Auto) 13.8 L [place] % (Auto) 12.5 Eos % (Auto) 0.0 L Baso % (Auto) 0.1 Neut # (Auto) 7000 Lymph # (Auto) 1300 [place] # (Auto) 1200 H Eos # (Auto) 0 Baso # (Auto) 0 Sodium 141 Potassium 4.5 Chloride 106 Carbon Dioxide 30 BUN 21 H Creatinine 0.67 Estimated GFR > 60.0 BUN/Creatinine Ratio 31.3 H Glucose 120 H Calcium 8.4 Magnesium 2.3 PFSH Medical History Patient denies medical problems Surgical History No pertinent past surgical history Family History Father Diabetes mellitus Asthma Mother Healthy adult Sister Asthma Social History household members: family Smoking Status: Never smoker Assessment & Plan Assessment & Plan narrative: Markus Patel is 29-year-old male with no pertinent past medical history who was in his usual state of health until he contracted COVID-19 and presented to the ED with worsening cough with paroxysms and shortness of breath. 1. Acute COVID-19 viral pneumonia, present on admission. Active. -Patient presented with severe cough, post-tussive emesis with his coughing paroxysms, fever, chills, myalgias, intermittent headache due to coughing, chest pain due to coughing, shortness of breath, diarrhea and loss of smell and taste. Patient is /[place] and prediabetic making him higher risk of severe disease. -COVID-19 positive. Respiratory PCR negative. -Initial inflammatory markers LDH highly elevated at 1333, CRP highly elevated at 4.1, ferritin normal at 98, and CPK elevated at 731 with repeat 319 and not high enough to be classified as rhabdomyolysis. -Chest x-ray demonstrated multifocal pulmonary opacities consistent with COVID-19 viral pneumonia. Plan to repeat chest x-ray tomorrow morning. -Patient had brief desaturation with SpO2 86-88% on room air in ED and was started on supplemental oxygen as below. -Continue to monitor closely on telemetry as patient's have propensity for arrhythmias. Patient is currently in sinus rhythm. -Received remdesivir 200 mg IV x1 and dexamethasone 6 mg IV x1 in ED. Continue remdesivir 100 mg IV daily for at least 5 days and dexamethasone 6 mg IV daily for 10 days or for duration of hospitalization whichever comes first. -Continue supportive treatment including: Prone positioning frequently and as often as tolerated (goal 12-16 hours in 24 hour period); bronchodilators, antipyretics, antiemetics, and antitussives as needed. -Continue negative pressure isolation for airborne and droplet precautions. -Discussed case with on-call process architect/counter intelligence technician at [facility], Dr. Lema, who agrees with current plan of care. Recommends continue supportive treatment with oxygen as necessary to maintain at rest a PaO2 of 55/SpO2 88% and respiratory rate < 30. Consider diuresing if patient is fluid positive in order to improve oxygenation. Does not recommend trending inflammatory markers. Do not intubate unless patient continues to decompensate, heated high-flow has been maximized and/or continues to have severe hypoxemia and is at high risk of imminent failure. [facility] has beds available and they would be happy to accept if patient requires intubation and higher level of care. 2. Acute hypoxemic respiratory failure, present on admission. Active. -Patient had brief desaturation with SpO2 86-88% on room air in ED. Patient continued to have increased work of breathing and hypoxemia and was switched to heated high flow oxygen. -Continue respiratory therapy evaluation and treatment. Continue heated high-flow oxygen with goal at rest PaO2 55/SpO2 88% and respiratory rate < 30. May increase oxygen requirement as necessary during activity or with meals to avoid decompensation and return to prior settings afterward. Patient is currently on heated high-flow with FiO2 45% and 50 L flow saturating mid 90s. Continue to monitor ABG daily and as needed. Continue bronchodilators with albuterol inhaler 4 puffs every 4 hours while awake and 2 puffs every 2 hours as needed for shortness of breath or wheezing. Continue prone positioning frequently and as often as tolerated (goal 12-16 hours in 24 hour period). Continue treatment of COVID-19 viral pneumonia as above. -Received furosemide 20 mg IV x1 with improvement in oxygenation. Ordered additional furosemide 40 mg IV x1 today as patient continues to be net + 4 L (although previously were not obtaining strict I&O's). 3. Prediabetes, chronic and newly diagnosed, present on admission. Stable. -Hemoglobin A1c 6.2% indicative of prediabetes. -Continue [facility] blood glucose checks and low-dose correctional scale insulin. -Continue carbohydrate consistent/heart healthy diet. -Consulted dietitian and we appreciate her time and recommendations. Code status: Full code, surrogate decision maker is patient's mother Dixie Patel VTE prophylaxis: SQ Heparin, SCDs Disposition: Patient remains hospitalized to treat hypoxemic respiratory failure and COVID-19 viral pneumonia.
[2020-02-23] MEDS: REMDESIVIR 100 MG in SODIUM CHLORIDE 0.9% 230 ML 250 ML IV (13:54)
[2020-02-23] MEDS: FUROSEMIDE 40 MG/4 ML VIAL IV (14:55)
--- NOTE | 2020-02-23 18:51 | PC.NURSE ---
pt dangled on side of the bed 95% 50L, FIO2 44. sporadic dry cough. denied any muscle aches. refused tylenol or cepacol. strict I's&O's per orders.
[2020-02-24] VITALS (19 sets, daily range): BP systolic 113–139; BP diastolic 57–84; PULSE 70–104; RESP 18–21; TEMP 36.4–36.8; O2SAT 93–98
--- NOTE | 2020-02-24 00:12 | PC.NURSE ---
No c/o of pain, SOB. Pt proning as advised.
[2020-02-24 06:16] LABS: Add Manual Diff / Slide Review NO; Basophils Absolute Auto 0 /uL (0-100); Basophils Percent Auto 0.1 % (0-2); Eosinophils Absolute Auto 0 /uL (0-450); Hematocrit 43.2 % (41-53); Hemoglobin 13.9 g/dL (13.5-17.5); Lymphocytes Absolute Auto 1700 /uL (1100-4500); Lymphocytes Percent Auto 15.6 % (25-40); Mean Corpuscular HGB Conc 32.2 % (30-36); Mean Corpuscular Hemoglobin 24.7 PG (26-34); Mean Corpuscular Volume 76.7 fL (80-100); Monocytes Absolute Auto 1300 /uL (0-900); Monocytes Percent Auto 11.9 % (3-14); Neutrophils Absolute Auto 8000 /uL (1500-7000); Neutrophils Percent Auto 72.4 % (50-75); Platelet Count 309 X10^3/uL (150-400); Red Blood Cell Count 5.63 X10^6/uL (4.5-5.9); Red Cell Distribution Width 14.7 % (11.6-14.8)
[2020-02-24 06:25] LABS: Alanine Aminotransferase 60 IU/L (<50); Albumin 4.1 g/dL (3.5-5.0); Albumin Globulin Ratio 1.2 (1.0-2.8); Alkaline Phosphatase 63 U/L (38-126); Aspartate Aminotransferase 50 IU/L (17-59); BUN Creatinine Ratio 35.9 (6-22); Bilirubin Total 0.6 mg/dL (0.2-1.3); Blood Urea Nitrogen 23 mg/dL (9-20); Calcium 8.7 mg/dL (8.4-10.2); Carbon Dioxide 28 mmol/L (22-32); Chloride 106 mmol/L (98-107); Estimated Glomerular Filt Rate > 60.0 mL/min (>60); Globulin 3.5 g/dL (1.7-4.1); Glucose 113 mg/dL (70-100); HEMOLYSIS < 15 (0-50); Magnesium 2.4 mg/dL (1.6-2.3); Potassium 4.1 mmol/L (3.4-5.1); Sodium 139 mmol/L (137-145); Total Protein 7.6 g/dL (6.3-8.2)
[2020-02-24] MEDS: ALBUTEROL HFA 200 PUFF/18 GM INH (COVID POS/VENT PTS) INH ×5 (07:03→22:22)
--- NOTE | 2020-02-24 07:56 | DI.RAD.S_ITS ---
PROCEDURE: XR CHEST 1V INDICATIONS: COVID 19 PNA, Hypoxemic RF TECHNIQUE: One view of the chest was acquired. COMPARISON: [facility], CR, XR CHEST 1V, 02/20/2020, 13:24. FINDINGS: Surgical changes and devices: None. Lungs and pleura: Lungs are abnormal with a patchy alveolar airspace distribution of lung disease, consistent with the provided clinical history. No pleural effusions or pneumothorax. Mediastinum: Mediastinal contours appear normal. Heart size is normal. Bones and chest wall: No suspicious bony lesions. Overlying soft tissues appear unremarkable. IMPRESSION: No worsening in patchy bilateral alveolar infiltration from 02/20/20. Slightly improved inspiratory volume. Dictated by: Dung Zapien M.D. on 02/24/2020 at 9:58 Approved by: Dung Zapien M.D. on 02/24/2020 at 9:59
[2020-02-24] MEDS: DEXAMETHASONE 10 MG/ML VIAL 6 MG IV (08:12)
[2020-02-24] MEDS: SODIUM CHLORIDE 0.9% FLUSH 10 ML IV ×2 (08:13→21:17)
[2020-02-24] MEDS: HEPARIN 5,000 UNIT/ML VIAL 5000 UNIT SUBCUT ×2 (08:13→20:57)
[2020-02-24 08:35] LABS: PCO2 ABG 36.3 mmHg (35-45); PO2 ABG 76 mmHg (80-100); pH ABG 7.46 (7.35-7.45)
[2020-02-24 08:36] LABS: Fractionated Inspired Oxygen 96; HCO3 ABG 26 mmol/L (22-26); Oxygen Saturation ABG 96 % (95-100); TCO2 ABG 27 mmol/L (21-31)
--- NOTE | 2020-02-24 13:57 | CM.DPC ---
DCP/continued: Received update in AM rounds indicating that patient doing much better. D/C date unknown but patient now requiring less 02. Provider hopeful patient will be stable enough to d/c home soon. P: COVID positive patient. Current d/c plan is home when stable. PARMJIT Harrison
[2020-02-24] MEDS: REMDESIVIR 100 MG in SODIUM CHLORIDE 0.9% 230 ML 250 ML IV (14:38)
--- NOTE | 2020-02-24 14:59 | PM.PN.1 ---
Subjective Subjective Date Patient Seen: 02/24/20 Interval history: Markus Patel is 29-year-old male with no pertinent past medical history who was in his usual state of health until he contracted COVID-19 and presented to the ED with worsening cough with paroxysms and shortness of breath. The patient is sitting at bedside eating lunch. He is more animated and reports he feels much better. His oxygenation has drastically improved and he has been titrated off of heated high-flow. He is currently on 5L supplemental oxygen via nasal cannula. His symptoms have resolved other than occasional dry cough. He continues to prone the majority of each shift. He denies headache, nasal congestion or rhinitis, chest pain, shortness of breath, myalgias, abdominal pain, nausea, vomiting, fevers, chills, dysuria, diarrhea or constipation. He continues to have a good appetite. He is voiding and eliminating without difficulty. He is up ambulating in room without assistance. Exam Vital Signs (past 8 hours): - 02/24/20 07:15 02/24/20 07:30 02/24/20 08:00 Temperature Pulse Rate 86 Respiratory Rate 21 Blood Pressure Pulse Oximetry 96 94 93 02/24/20 08:25 02/24/20 11:32 02/24/20 11:57 Temperature 98.2 F 97.9 F Pulse Rate 77 97 H Respiratory Rate 19 20 19 Blood Pressure 118/75 134/57 L Pulse Oximetry 96 96 94 02/24/20 14:00 Temperature Pulse Rate Respiratory Rate Blood Pressure Pulse Oximetry 94 Fraction of Inspired Oxygen 30 Oxygen Delivery Method High Flow Nasal Cannula Oxygen Flow Rate 5 Narrative Exam Narrative: General: Young male lying in bed prone and in no acute distress, appears acutely ill, appropriately interactive. HEENT: Normocephalic, atraumatic. External ears without defect. Pupils equal, round, and reactive to light. Anicteric sclerae, moist conjunctivae, and no lid lag. Oropharynx free of erythema and cobble stoning with moist mucosa. Neck: Supple with full range of motion. No lymphadenopathy or thyromegaly. Cardiovascular: Regular rhythm and rate without murmurs, rubs, or gallops appreciated. Pulmonary: Slightly diminished with continued improved aeration and clear to auscultation bilaterally without crackles, wheezes, or rhonchi. Normal respiratory effort with no use of accessory muscles. Abdomen: Soft, bowel sounds present, nontender, nondistended. No hepatosplenomegaly or masses appreciated. Extremities: No clubbing, cyanosis, or edema. Skin: Normal temperature, turgor, and texture; no rash, ulcers, or subcutaneous nodules appreciated. Neurological: Cranial nerves grossly intact. Psychiatric: Normal mood and affect. Alert and oriented to person, place, and time. Objective Labs Result Diagrams: 02/24/20 06:00 02/24/20 06:00 Labs: Laboratory Results - last 24 hr 02/24/20 02/24/20 02/24/20 06:00 06:00 07:15 WBC 11.0 RBC 5.63 Hgb 13.9 Hct 43.2 MCV 76.7 L MCH 24.7 L MCHC 32.2 RDW 14.7 Plt Count 309 Neut % (Auto) 72.4 Lymph % (Auto) 15.6 L White % (Auto) 11.9 Eos % (Auto) 0.0 L Baso % (Auto) 0.1 Neut # (Auto) 8000 H Lymph # (Auto) 1700 White # (Auto) 1300 H Eos # (Auto) 0 Baso # (Auto) 0 ABG pH 7.46 H ABG pCO2 36.3 ABG pO2 76 L ABG HCO3 26 ABG Total CO2 27 ABG O2 Saturation 96 ABG Base Excess 2.0 FiO2 96 Sodium 139 Potassium 4.1 Chloride 106 Carbon Dioxide 28 BUN 23 H Creatinine 0.64 L Estimated GFR > 60.0 BUN/Creatinine Ratio 35.9 H Glucose 113 H Calcium 8.7 Magnesium 2.4 H Total Bilirubin 0.6 AST 50 ALT 60 H Alkaline Phosphatase 63 Total Protein 7.6 Albumin 4.1 Globulin 3.5 Albumin/Globulin Ratio 1.2 [facility] Medical History Patient denies medical problems Surgical History No pertinent past surgical history Family History Father Diabetes mellitus Asthma Mother Healthy adult Sister Asthma Social History household members: family Smoking Status: Never smoker Assessment & Plan Assessment & Plan narrative: Markus Patel is 29-year-old male with no pertinent past medical history who was in his usual state of health until he contracted COVID-19 and presented to the ED with worsening cough with paroxysms and shortness of breath. 1. Acute COVID-19 viral pneumonia, present on admission. Improving. -Patient presented with severe cough, post-tussive emesis with his coughing paroxysms, fever, chills, myalgias, intermittent headache due to coughing, chest pain due to coughing, shortness of breath, diarrhea and loss of smell and taste. Patient is /[place] and prediabetic making him higher risk of severe disease. -COVID-19 positive. Respiratory PCR negative. -Initial inflammatory markers LDH highly elevated at 1333, CRP highly elevated at 4.1, ferritin normal at 98, and CPK elevated at 731 with repeat 319 and not high enough to be classified as rhabdomyolysis. -Chest x-ray demonstrated multifocal pulmonary opacities consistent with COVID-19 viral pneumonia. Repeat chest x-ray demonstrated slightly improved patchy bilateral pulmonary opacities. -Patient had brief desaturation with SpO2 86-88% on room air in ED and was started on supplemental oxygen as below. -Discontinued telemetry as patient has remained in sinus rhythm throughout hospitalization. -Received remdesivir 200 mg IV x1 and dexamethasone 6 mg IV x1 in ED. Continue remdesivir 100 mg IV daily until discharge and dexamethasone 6 mg IV daily for 10 days or for duration of hospitalization whichever comes first. -Continue supportive treatment including: Prone positioning frequently and as often as tolerated (goal 12-16 hours in 24 hour period); bronchodilators, antipyretics, antiemetics, and antitussives as needed. -Continue negative pressure isolation for airborne and droplet precautions. -Discussed case with on-call data modeler/cyber operator at [facility], Dr. Lema, who agrees with current plan of care. Recommends continue supportive treatment with oxygen as necessary to maintain at rest a PaO2 of 55/SpO2 88% and respiratory rate < 30. Consider diuresing if patient is fluid positive in order to improve oxygenation. Does not recommend trending inflammatory markers. Do not intubate unless patient continues to decompensate, heated high-flow has been maximized and/or continues to have severe hypoxemia and is at high risk of imminent failure. [facility] has beds available and they would be happy to accept if patient requires intubation and higher level of care. 2. Acute hypoxemic respiratory failure, present on admission. Improving. -Patient had brief desaturation with SpO2 86-88% on room air in ED. Patient continued to have increased work of breathing and hypoxemia and was switched to heated high flow oxygen. -Continue respiratory therapy evaluation and treatment. Continue heated high-flow oxygen with goal at rest PaO2 55/SpO2 88% and respiratory rate < 30. May increase oxygen requirement as necessary during activity or with meals to avoid decompensation and return to prior settings afterward. Patient has been titrated off of heated high-flow and is now on supplemental high-flow oxygen via nasal cannula at 5 L saturating mid 90s. Continue to monitor ABG daily and as needed. Continue bronchodilators with albuterol inhaler 4 puffs every 4 hours while awake and 2 puffs every 2 hours as needed for shortness of breath or wheezing. Continue prone positioning frequently and as often as tolerated (goal 12-16 hours in 24 hour period). Continue treatment of COVID-19 viral pneumonia as above. -Received furosemide 60 mg IV total with improved oxygenation. 3. Prediabetes, chronic and newly diagnosed, present on admission. Stable. -Hemoglobin A1c 6.2% indicative of prediabetes. -Continue [facility] blood glucose checks and low-dose correctional scale insulin. -Continue carbohydrate consistent/heart healthy diet. -Consulted dietitian and we appreciate her time and recommendations. Code status: Full code, surrogate decision maker is patient's mother Dixie Patel VTE prophylaxis: SQ Heparin, SCDs Disposition: Patient likely to discharge in the next 1-2 days once he is able to titrate off of oxygen.
--- NOTE | 2020-02-24 22:07 | PC.NURSE ---
Pt mostly on prone position this evening. pt had a shower. Intermittent cough, but better than yesterday. voiding without difficulty. afebrile . no muscle aches. call light in reach.
[2020-02-25] VITALS (13 sets, daily range): BP systolic 112–127; BP diastolic 76–78; PULSE 70–89; RESP 16–20; TEMP 36.6–36.8; O2SAT 95–98
--- NOTE | 2020-02-25 01:11 | PC.NURSE ---
Pt reports feeling much better. Proning as advised. No c/o of SOB at this time.
[2020-02-25 05:47] LABS: Add Manual Diff / Slide Review NO; Basophils Absolute Auto 0 /uL (0-100); Basophils Percent Auto 0.1 % (0-2); Eosinophils Absolute Auto 0 /uL (0-450); Eosinophils Percent Auto 0.1 % (2-4); Hematocrit 42.7 % (41-53); Hemoglobin 13.7 g/dL (13.5-17.5); Lymphocytes Absolute Auto 2700 /uL (1100-4500); Lymphocytes Percent Auto 21.1 % (25-40); Mean Corpuscular Hemoglobin 24.6 PG (26-34); Mean Corpuscular Volume 76.9 fL (80-100); Monocytes Absolute Auto 1500 /uL (0-900); Monocytes Percent Auto 11.8 % (3-14); Neutrophils Absolute Auto 8400 /uL (1500-7000); Neutrophils Percent Auto 66.9 % (50-75); Platelet Count 353 X10^3/uL (150-400); Red Blood Cell Count 5.55 X10^6/uL (4.5-5.9); White Blood Cell Count 12.6 X10^3/uL (4.5-11.0)
[2020-02-25] MEDS: ALBUTEROL HFA 200 PUFF/18 GM INH (COVID POS/VENT PTS) INH ×2 (05:52→12:42)
[2020-02-25 05:59] LABS: BUN Creatinine Ratio 37.1 (6-22); Blood Urea Nitrogen 23 mg/dL (9-20); Calcium 8.7 mg/dL (8.4-10.2); Carbon Dioxide 29 mmol/L (22-32); Chloride 104 mmol/L (98-107); Estimated Glomerular Filt Rate > 60.0 mL/min (>60); Glucose 98 mg/dL (70-100); HEMOLYSIS 17 (0-50); Potassium 4.3 mmol/L (3.4-5.1); Sodium 137 mmol/L (137-145)
[2020-02-25 10:01] LABS: Magnesium 2.4 mg/dL (1.6-2.3)
[2020-02-25] MEDS: HEPARIN 5,000 UNIT/ML VIAL 5000 UNIT SUBCUT (10:03)
[2020-02-25] MEDS: SODIUM CHLORIDE 0.9% FLUSH 10 ML IV (10:04)
[2020-02-25] MEDS: DEXAMETHASONE 10 MG/ML VIAL 6 MG IV (10:04)
[2020-02-25 10:13] LABS: pH ABG 7.47 (7.35-7.45)
[2020-02-25 10:14] LABS: HCO3 ABG 25 mmol/L (22-26); PCO2 ABG 34.4 mmHg (35-45); PO2 ABG 64 mmHg (80-100); TCO2 ABG 26 mmol/L (21-31)
[2020-02-25 10:15] LABS: Fractionated Inspired Oxygen 0.21; Oxygen Saturation ABG 94 % (95-100)
[2020-02-25 10:18] LABS: Procalcitonin < 0.05 ng/mL (<0.5)
[2020-02-25 10:47] LABS: C-Reactive Protein Quant 0.6 mg/dL (<1.0); Lactate Dehydrogenase 1092 U/L (313-618)
--- NOTE | 2020-02-25 12:31 | DIET.PN ---
Dietary Progress Note Assessment: 29y M admitted for acute hypoxia and covid 19 pneumonia referred to nutrition for preDM and obesity. HT: 177.8cm WT: 108kg BMI: 34.2 Labs: A1c 6.1 Provided pt c preDM packet and called into room after he had time to review the material. Nutrition Diagnosis: altered nutrition related laboratory values r/t nutrition related knowledge deficit and physical inactivity aeb A1c 6.1, BMI 34.2, pt reports needing to eat less meat to manage preDM. Interventions: 1. Provided pt c preDM packet and food/exercise log. Educated pt on what A1c is and how the number is affected. 2. Discussed importance of CCD diet, provided pt range of 45-60 CHO per meal with priority towards 45 rather than 60. Worked c pt on building meals within his carb limit. Pt will focus on added sugars in beverages and rice/bread/pasta/sweets intake. Managing CHO intake will help with weight management as well. Pt able to teach back information and is eager to change health based on current hospitalization. 3. Discussed role of physical activity on preDM and obesity. To support good glucose control, recc 30min per day of physical activity, up to one hour per day to promote weight loss. 4. Provided pt CCD2 diet and ONS Ensure Max to support respiratory and overall health during hospital stay. Diet Order: CCD Monitoring/Evaluations: pt is aware he can come in for OP visits once d/c'd and testing negative for covid19.
--- NOTE | 2020-02-25 12:58 | P.DS_ITS ---
History of Present Illness History of Present Illness Date Patient Seen: 01/20/20 Chief complaint: COVID Exposure, COVID Symptoms Narrative: Written by myself Dr. Burks: Markus Patel is 29-year-old male with no pertinent past medical history who was in his usual state of health until he contracted COVID- 19 and presented to the ED with worsening cough with paroxysms and shortness of breath. The patient reports that 2 weeks ago his grandmother and father became ill with COVID-19. His father was hospitalized and required intubation and transfer to [facility] for intensive care. He reports that his grandmother this morning at home due to COVID-19. He reports that he became ill 5-7 days ago and was tested for COVID-19 but had not received his results. He endorses severe cough, post-tussive emesis with his coughing paroxysms, fever, chills, myalgias, intermittent headache due to coughing, chest pain due to coughing, shortness of breath, diarrhea and loss of smell and taste. He denies abdominal pain, nausea or vomiting unrelated to cough. He is voiding without difficulty. ED course: Vital signs: Temperature 101.8?, blood pressure 129/71, heart rate 102, respiratory rate 28, SpO2 95% on room air. The patient had a brief episode of desaturation to 86-88% on room air and was started on 2 L of supplemental oxygen. COVID-19 positive. Respiratory PCR negative. Chest x-ray demonstrated multifocal pulmonary opacities consistent with COVID viral pneumonia. PCP Jp Nielsen Discharge Providers Provider Date of admission: 02/20/20 14:49 Discharge Date: 02/25/20 Primary care physician: Jp Nielsen MD Consults: 02/20/20 17:16 Consult to Discharge Planning Routine Comment: Consult to Respiratory Therapy Evaluate & Treat Comment: Physician Instructions: Evaluate and treat Discharge provider: Brittany Burks DO Summary Hospital Course Discharge Diagnosis: 1. Acute COVID-19 viral pneumonia, present on admission. Resolving. 2. Acute hypoxemic respiratory failure, present on admission. Resolved. 3. Prediabetes, chronic and newly diagnosed, present on admission. Stable. Hospital Course: Markus Patel is 29-year-old male with no pertinent past medical history who was in his usual state of health until he contracted COVID- 19 and presented to the ED with worsening cough with paroxysms and shortness of breath. 1. Acute COVID-19 viral pneumonia, present on admission. Resolving. -Patient presented with severe cough, post-tussive emesis with his coughing paroxysms, fever, chills, myalgias, intermittent headache due to coughing, chest pain due to coughing, shortness of breath, diarrhea and loss of smell and taste. Patient is /[place] and prediabetic making him higher risk of severe disease. -COVID-19 positive. Respiratory PCR negative. -Initial inflammatory markers: LDH highly elevated at 1333 and repeat decreased to 1092, CRP highly elevated at 4.1 and repeat decreased to 0.6, ferritin normal at 98, and CPK elevated at 731 and repeat decreased to 319. -Chest x-ray demonstrated multifocal pulmonary opacities consistent with COVID- 19 viral pneumonia. Repeat chest x-ray demonstrated slightly improved patchy bilateral pulmonary opacities. -Patient had brief desaturation with SpO2 86-88% on room air in ED and was started on supplemental oxygen as below. -Discontinued telemetry as patient has remained in sinus rhythm throughout hospitalization. -Received remdesivir 200 mg IV x1 and dexamethasone 6 mg IV x1 in ED. Continue remdesivir 100 mg IV daily x 6 days and dexamethasone 6 mg IV daily x 6 days. -Continued supportive treatment including: Prone positioning frequently and as often as tolerated (goal 12-16 hours in 24 hour period); bronchodilators, antipyretics, antiemetics, and antitussives as needed. Recommended continued prone positioning at home and rest. -Continued negative pressure isolation for airborne and droplet precautions. -Discussed case with on-call hack saw operator/test lead application testing at [facility], Dr. Lema, who agrees with current plan of care. Recommends continue supportive treatment with oxygen as necessary to maintain at rest a PaO2 of 55/SpO2 88% and respiratory rate < 30. Consider diuresing if patient is fluid positive in order to improve oxygenation. Does not recommend trending inflammatory markers. Do not intubate unless patient continues to decompensate, heated high-flow has been maximized and/or continues to have severe hypoxemia and is at high risk of imminent failure. 2. Acute hypoxemic respiratory failure, present on admission. Resolved. -Patient had brief desaturation with SpO2 86-88% on room air in ED. Patient continued to have increased work of breathing and hypoxemia and was switched to heated high flow oxygen. -Continued respiratory therapy evaluation and treatment. Continued heated high- flow oxygen with goal at rest PaO2 55/SpO2 88% and respiratory rate < 30. Allowed for increase of oxygen requirement as necessary during activity or with meals to avoid decompensation and returned to prior settings afterward. Patient slowly improved with proning, pulmonary toilet, remdesivir, dexamethasone and furosemide. He was slowly titrated off of heated high-flow then supplemental oxygen. He remained stable off oxygen and room air with oxygen saturations in the high 90's. Continued to monitor ABG daily and as needed. Continued bronchodilators with albuterol inhaler 4 puffs every 4 hours while awake and 2 puffs every 2 hours as needed for shortness of breath or wheezing. Continue prone positioning frequently and as often as tolerated (goal 12-16 hours in 24 hour period). Continue treatment of COVID-19 viral pneumonia as above. -Received furosemide 60 mg IV total with improved oxygenation. 3. Prediabetes, chronic and newly diagnosed, present on admission. Stable. -Hemoglobin A1c 6.2% indicative of prediabetes. -Continued [facility] blood glucose checks and low-dose correctional scale insulin. -Continued carbohydrate consistent/heart healthy diet. -Consulted dietitian and we appreciate her time and recommendations. Exam Vital Signs (past 8 hours): - 02/25/20 05:00 02/25/20 05:25 02/25/20 05:53 Temperature 98.3 F Pulse Rate 81 Respiratory Rate 16 Blood Pressure 124/78 Pulse Oximetry 95 95 95 02/25/20 08:16 02/25/20 08:30 02/25/20 10:18 Temperature 97.9 F Pulse Rate 72 Respiratory Rate 20 Blood Pressure 121/77 Pulse Oximetry 95 95 95 02/25/20 10:19 02/25/20 11:37 02/25/20 12:10 Temperature 98.0 F Pulse Rate 89 Respiratory Rate 20 Blood Pressure 112/77 Pulse Oximetry 96 96 96 02/25/20 12:12 Temperature Pulse Rate Respiratory Rate Blood Pressure Pulse Oximetry 96 Fraction of Inspired Oxygen 30 Oxygen Delivery Method Room Air Oxygen Flow Rate 0 Narrative Exam Narrative: General: Young male lying in bed prone and in no acute distress and in good spirits, appropriately interactive. HEENT: Normocephalic, atraumatic. External ears without defect. Pupils equal, round, and reactive to light. Anicteric sclerae, moist conjunctivae, and no lid lag. Oropharynx free of erythema and cobble stoning with moist mucosa. Neck: Supple with full range of motion. No lymphadenopathy or thyromegaly. Cardiovascular: Regular rhythm and rate without murmurs, rubs, or gallops appreciated. Pulmonary: Slightly diminished with continued improved aeration and clear to auscultation bilaterally without crackles, wheezes, or rhonchi. Normal respiratory effort with no use of accessory muscles. Abdomen: Soft, bowel sounds present, nontender, nondistended. No hepatosplenomegaly or masses appreciated. Extremities: No clubbing, cyanosis, or edema. Skin: Normal temperature, turgor, and texture; no rash, ulcers, or subcutaneous nodules appreciated. Neurological: Cranial nerves grossly intact. Psychiatric: Normal mood and affect. Alert and oriented to person, place, and time. Objective Labs Result Diagrams: 02/25/20 05:14 02/25/20 05:14 Labs: Laboratory Results - last 24 hr 02/25/20 02/25/20 02/25/20 05:14 05:14 05:14 WBC 12.6 H RBC 5.55 Hgb 13.7 Hct 42.7 MCV 76.9 L MCH 24.6 L MCHC 32.0 RDW 15.0 H Plt Count 353 Neut % (Auto) 66.9 Lymph % (Auto) 21.1 L Gove % (Auto) 11.8 Eos % (Auto) 0.1 L Baso % (Auto) 0.1 Neut # (Auto) 8400 H Lymph # (Auto) 2700 Gove # (Auto) 1500 H Eos # (Auto) 0 Baso # (Auto) 0 ABG pH ABG pCO2 ABG pO2 ABG HCO3 ABG Total CO2 ABG O2 Saturation ABG Base Excess FiO2 Sodium 137 Potassium 4.3 Chloride 104 Carbon Dioxide 29 BUN 23 H Creatinine 0.62 L Estimated GFR > 60.0 BUN/Creatinine Ratio 37.1 H Glucose 98 Calcium 8.7 Magnesium Lactate Dehydrogenase C-Reactive Protein Procalcitonin < 0.05 02/25/20 02/25/20 02/25/20 05:14 05:14 09:55 WBC RBC Hgb Hct MCV MCH MCHC RDW Plt Count Neut % (Auto) Lymph % (Auto) Gove % (Auto) Eos % (Auto) Baso % (Auto) Neut # (Auto) Lymph # (Auto) Gove # (Auto) Eos # (Auto) Baso # (Auto) ABG pH 7.47 H ABG pCO2 34.4 L ABG pO2 64 L ABG HCO3 25 ABG Total CO2 26 ABG O2 Saturation 94 L ABG Base Excess 1.0 FiO2 0.21 Sodium Potassium Chloride Carbon Dioxide BUN Creatinine Estimated GFR BUN/Creatinine Ratio Glucose Calcium Magnesium 2.4 H Lactate Dehydrogenase 1092 H C-Reactive Protein 0.6 Procalcitonin [facility] Medical History Patient denies medical problems Surgical History No pertinent past surgical history Family History Father Diabetes mellitus Asthma Mother Healthy adult Sister Asthma Social History household members: family Smoking Status: Never smoker Discharge Plan Discharge Plan Patient Disposition: Home Provider Discharge Comment: You are being discharged home. You had COVID 19 viral pneumonia and respiratory failure. Your respiratory failure has resolved and your COVID 19 viral pneumonia is resolving. You should remain in quarantine at home for 21 days from onset of symptoms 02/13-03/05. Please take it easy and try to get plenty of rest and do not overdo activity. Please use good hygiene and wash hands frequently and cover cough. Please keep common areas sanitized and wiped down. Please wash bedding and clothing with detergent and hot water and dry on high heat. If you develop fever, chills or shortness of breath please seek medical attention immediately. You may visit www.CDC.gov for information regarding COVID-19. Please follow-up with Dr. Nielsen in 2-3 weeks regarding your hospitalization and continued medical care. Discharge orders & Medications Prescriptions: New albuterol sulfate [Ventolin HFA] 90 mcg/actuation Hfa Aerosol Inhaler 2 puff inhalation Q4-6H Qty: 18 RF: 0 Follow up/Referrals: Jp Nielsen MD [Primary Care Provider] - 03/01/20 2:00 pm (appt:12/8 @ 2:00 with please arrive 15 minutes prior to your scheduled appointment time) Diet/Activity/Treatments Diet: Diet as Tolerated and Carb-consistent/Diabetic Activity: Activity as tolerated Visit Report/Discharge Packet Instructions: Lifestyle Changes as Effective as Drugs in Preventing Progression to Diabet, DI for Respiratory Failure, DI for Atypical Pneumonia, DI for Pred iabetes, DI for COVID-19 (Suspected or Confirmed ) Discharge Data Primary Care Provider: Jp Nielsen
[2020-02-25] MEDS: REMDESIVIR 100 MG in SODIUM CHLORIDE 0.9% 230 ML 250 ML IV (13:34)
[2020-02-25] MEDS: INFLUENZA VACCINE 0.5 ML SYRINGE IM (15:50)
--- NOTE | 2020-02-25 16:05 | PC.NURSE ---
1605- Patient given information on Inhaler and given the Inhaler from his room with a spacer. Patient given Flu vaccine per order. IV removed. Patient verbalized understanding of discharge plan and the need to quarantine at home. Patient advised he can call the hospital with questions should he have any. Patient advised to call 911 if he has emergent needs. Patient alert and oriented and stable at the time of discharge.
[2020-02-25 20:57] LABS: pH ABG 7.47 (7.35-7.45)
[2020-02-25 20:58] LABS: Fractionated Inspired Oxygen 21; HCO3 ABG 22 mmol/L (22-26); Oxygen Saturation ABG 97 % (95-100); PCO2 ABG 29.4 mmHg (35-45); PO2 ABG 79 mmHg (80-100); TCO2 ABG 22 mmol/L (21-31)
[2020-03-14 18:58] LABS: HCO3 ABG 20 mmol/L (22-26)
== END 2020-02-25 16:05 | disposition home or self-care (01) | DRG 177 ==
LOC: ED 14:49 → AC 14:50
PROVIDERS: Nurse Practitioner Adult Health; Nurse Practitioner Family; Admitting Provider Internal Medicine; Emergency Provider Emergency Medicine; PCP Family Medicine; Referring Provider Emergency Medicine; Visit Provider Internal Medicine
DX: U07.1 COVID-19 (principal); J12.89 Other viral pneumonia; J96.01 Acute respiratory failure with hypoxia; R73.03 Prediabetes
CPT/HCPCS: 36415; 36600; 71045; 80048; 80053; 82550; 82553; 82728; 82805; 82962; 83036; 83605; 83615; 83735; 83880; 84145; 84484; 85025; 85379; 86140; 87633; 87635; 90471; 90656; 93005; 93010; 94640; 94760; 94762; 96361; 96365; 96375; 99284; 99285; A9270; J1100; J1644; J1940; J2060; Q2038

== ENCOUNTER 2020-05-21 15:46 | Emergency (ER) | payer OTHER, SELFPAY ==
[2020-02-20 16:58] VITALS: BMI 31.5
[2020-05-21 15:51] VITALS: BP 157/84; PULSE 67; RESP 18; TEMP 36.1; O2SAT 98
--- NOTE | 2020-05-21 15:54 | DI.RAD.S_ITS ---
PROCEDURE: XR WRIST RT MIN 3V INDICATIONS: atraumatic right wrist pain TECHNIQUE: 4 views of the wrist were acquired. COMPARISON: None. FINDINGS: Bones: No fractures or dislocations. No suspicious bony lesions. Scaphoid view: Negative Soft tissues: No suspicious soft tissue calcifications. IMPRESSION: No acute fracture. No osseous lesion. If symptoms and/or clinical suspicion for pathology persist, further assessment with repeat, or advanced imaging (e.g., CT, MRI, or bone scan) may be helpful for further assessment. Dictated by: Carolyn Garcia M.D. on 05/21/2020 at 15:08 Approved by: Carolyn Garcia M.D. on 05/21/2020 at 15:09
[2020-05-21] MEDS: ACETAMINOPHEN 325 MG TABLET 975 MG PO (15:59)
--- NOTE | 2020-05-21 15:59 | PC.NURSE ---
only painful when pulling or gripping with fourth and fifth finger. states pain is in his proximal wrist when manipulating fourth and fifth finger.
--- NOTE | 2020-05-21 16:25 | ED_ITS ---
HPI - Extremity Problem General Chief complaint: Extremity Problem,Nontraumatic Stated complaint: RIGHT WRIST INJURY Time Seen by Provider: 05/21/20 16:15 Source: patient and family Mode of arrival: Ambulatory Limitations: no limitations History of Present Illness HPI Narrative: Patient is a 30-year-old male here for evaluation of right wrist pain. 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 He states he started have pain on the little finger side of his wrist that extended into his little finger. He has no elbow pain. Has not tried anything for symptoms prior to arrival. Related Data Home Medications Medication Instructions Recorded Confirmed No Known Home Medications 05/21/20 05/21/20 Allergies Allergy/AdvReac Type Severity Reaction Status Date / Time ibuprofen Allergy Hives Verified 05/21/20 15:53 Review of Systems Constitutional Constitutional: Denies fever(s) Musculoskeletal Comments: Right wrist pain Integumentary/Breasts Skin/Breast: Denies lesions and Denies rash Neurologic Comments: Tingling to the right little finger Hematologic/Lymphatic On Anticoagulants: No Allergic/Immunologic Allergic/Immunologic: Denies urticaria Patient History Medical History Patient denies medical problems Surgical History No pertinent past surgical history Family History Father Diabetes mellitus Asthma Mother Healthy adult Sister Asthma Social History household members: family Smoking Status: Never smoker Smoking Status: Never smoker alcohol intake frequency: 0-2 drinks per day Substance Use Type: does not use Exam Initial Vital Signs Initial Vital Signs: Vital Signs Temperature 97.0 F L 05/21/20 15:51 Pulse Rate 67 05/21/20 15:51 Respiratory Rate 18 05/21/20 15:51 Blood Pressure 157/84 H 05/21/20 15:51 Pulse Oximetry 98 05/21/20 15:51 Const General: cooperative and comfortable Cardio Pulses: radial pulses present on the right Skin Lesions: no lesions Rashes: no rashes Extrem Other: Patient reports symptoms around the little finger and on the ulnar side of the ring finger. Pain specifically the ulnar aspect of the wrist. No elbow tenderness. No shoulder tenderness. Psych Appearance: grossly normal and well kempt Procedures Orthopedic Splinting/Casting Injury #1: Side: right Upper Extremity Injury Location: wrist Upper Extremity Immobilizer: wrist splint Post splinting neuro exam: no change Post splinting vascular exam: no change Placed by: Nursing Course Orders Ordered: ED Orders 05/21/20 15:54 XR wrist RT min 3V Stat Discontinued Medications Acetaminophen (Acetaminophen 325 Mg Tablet) 975 mg PO NOW ONE Stop: 05/21/20 15:56 Last Admin: 05/21/20 15:59 Dose: 975 mg Documented by: TD Vital Signs Vital signs: Vital Signs - 8 hr 05/21/20 15:51 05/21/20 16:40 Temperature 97.0 F L Pulse Rate 67 80 Respiratory Rate 18 15 Blood Pressure 157/84 H 130/82 Pulse Oximetry 98 99 MDM - Extremity (Nontraumatic) Imaging Data Chest x-ray: Radiologist's Impression: [address] [id number] ReportSigned Patient: Markus Patel BMR#: [id number]: [id number]:[id number]/Sex: 30 / MDate of Service: 05/21/20Loc: EDAccession Number: [id number] Procedure: XR wrist RT min 3V Ordering Provider: Heber Steiner D.O. PROCEDURE: XR WRIST RT MIN 3V INDICATIONS: atraumatic right wrist pain TECHNIQUE: 4 views of the wrist were acquired. COMPARISON: None. FINDINGS: Bones: No fractures or dislocations. No suspicious bony lesions. Scaphoid view: Negative Soft tissues: No suspicious soft tissue calcifications. IMPRESSION: No acute fracture. No osseous lesion. If symptoms and/or clinical suspicion for pathology persist, further assessment with repeat, or advanced imaging (e.g., CT, MRI, or bone scan) may be helpful for further assessment. Dictated by: Carolyn Garcia M.D. on 05/21/2020 at 15:08 Approved by: Carolyn Garcia M.D. on 05/21/2020 at 15:09 [facility] Narrative Medical decision making narrative: He is neurovascularly intact. There is no f ractures on the x-ray. He does have tingling to his right hand consistent with the ulnar nerve distribution. I do suspect this is just a overuse injury given what he does at work. Will send home with a removable wrist splint. He was given care instructions and return precautions. He expressed understanding agreement Discharge Plan Departure Patient Disposition: Home Clinical Impression: Right wrist pain Instructions: DI for Wrist Sprain, How to Take Care of Your Splint Activity Restrictions/Additional Instructions: I do recommend that you wear your wrist splint during the day especially at work. You can take it off to shower. I recommend that when you are at home that you take it off and slightly move the wrist and also ICU wrist. You can take Tylenol and/or ibuprofen for any discomfort. Once your symptoms are better you can start wearing the wrist splint less time during the day until you can go the entire day without needing it and without discomfort. Contact your primary provider for follow-up. Return to the emergency department for any new or worsening symptoms Prescriptions: No Action No Known Home Medications RF: 0 Referrals: Jp Nielsen MD [Primary Care Provider] - Stand Alone Forms: Work Release Note
[2020-05-21 16:40] VITALS: BP 130/82; PULSE 80; RESP 15; O2SAT 99
== END 2020-05-21 16:41 | disposition home or self-care (01) ==
PROVIDERS: Emergency Provider Emergency Medicine; PCP Family Medicine
DX: M25.531 Pain in right wrist (principal); Y99.0 Civilian activity done for income or pay
CPT/HCPCS: 73110; 99283

== ENCOUNTER 2025-02-06 07:50 | Emergency (ER) | payer OTHER, SELFPAY ==
[2020-02-20 16:58] VITALS: BMI 31.5
[2025-02-06 08:11] VITALS: BP 162/89; PULSE 99; RESP 18; TEMP 36.6; O2SAT 99; BMI 41.4
--- NOTE | 2025-02-06 09:17 | ED.EAR ---
HPI - Ear Problem General Chief complaint: Ear Stated complaint: Severe RT ear ache Time Seen by Provider: 02/06/25 09:07 Source: patient Mode of arrival: Family Vehicle History of Present Illness HPI Narrative: 34-year-old man previously healthy complaining of right ear pain. He has had this for about 2 days. Says his hearing is muffled may have had a bit of a discharge. He does use Q-tips to clean out his ears. He is not having any fevers he now has some pain below the right ear in his neck also. Related Data Previous Rx's ?Medication ?Instructions ?Recorded ciprofloxacin 0.3 %-dexamethasone 4 drp EAR-RIGHT BID 7 days #7.5 mL 02/06/25 0.1 % ear drops,suspension Allergies Allergy/AdvReac Type Severity Reaction Status Date / Time ibuprofen Allergy Hives Verified 02/06/25 08:11 Patient History Medical History Patient denies medical problems Surgical History No pertinent past surgical history Family History Father Diabetes mellitus Asthma Mother Healthy adult Sister Asthma Social History household members: family Smoking Status: Never smoker Smoking Status: Never smoker alcohol intake frequency: 0-2 drinks per day Exam Narrative Exam Narrative: Well-appearing hypertensive Right canal has swelling and a little bit of debris in it. He has tenderness to pressure on the tragus. TM difficult to see but appears intact Neck is supple without adenopathy mastoids are nontender Voice is normal, no trismus no facial swelling Initial Vital Signs Initial Vital Signs: Vital Signs Temperature 97.8 F 02/06/25 08:11 Pulse Rate 99 H 02/06/25 08:11 Respiratory Rate 18 02/06/25 08:11 Blood Pressure 162/89 H 02/06/25 08:11 Pulse Oximetry 99 02/06/25 08:11 Oxygen Delivery Method Room Air 02/06/25 08:11 Course Vital Signs Vital signs: Vital Signs - 8 hr 02/06/25 08:11 Temperature 97.8 F Pulse Rate 99 H Respiratory Rate 18 Blood Pressure 162/89 H Pulse Oximetry 99 Oxygen Delivery Method Room Air Medical Decision Making MDM Narrative Medical decision making narrative: 34-year-old man with what appears to be an uncomplicated otitis externa. Does not appear to have a ruptured tympanic membrane, he is nontoxic in appearance I considered but do not suspect sepsis and mastoiditis. I started him on Ciprodex cautioned him against using Q-tips in his ears he is to follow up with Ear Nose and Throat if this problem is not better within 2 days Discharge Plan Departure Patient Disposition: Home Clinical Impression: Otitis externa Qualifiers: Otitis externa type: unspecified type Chronicity: acute Laterality: right Qualified Code(s): H60.501 - Unspecified acute noninfective otitis externa, right ear Activity Restrictions/Additional Instructions: Use the prescribed ear drops for the full course. When you use eardrops make sure that you are keeping your right ear up for at least 10 minutes after using to allow the drops to penetrate into your ear. You may use Tylenol as needed for pain. If you are not better by Saturday, call to make an appointment with the ear nose and throat doctor. Follow up soon with her primary care doctor. Do not put things like Q-tips in your ears. If you are having fevers, facial swelling or severe pain recheck in the emergency department Prescriptions: New ciprofloxacin-dexamethasone 0.3-0.1 % drops,suspension 4 drp EAR-RIGHT BID 7 Days Qty: 7.5 0RF Rx Instructions: Four drops to your right ear twice daily for 1 week Referrals: Jp Nielsen MD [Primary Care Provider, Medical] Heber Hernandes MD [Physician, Otolaryngology (ENT)] Stand Alone Forms: Patient Portal/API
[2025-02-06 09:34] VITALS: BP 140/87; PULSE 89; RESP 16; O2SAT 95
== END 2025-02-06 09:37 | disposition home or self-care (01) ==
PROVIDERS: Emergency Provider Emergency Medicine; PCP Family Medicine
DX: H60.501 Unspecified acute noninfective otitis externa, right ear (principal)
CPT/HCPCS: 99281

== ENCOUNTER 2025-02-08 08:32 | Emergency (ER) | payer OTHER, SELFPAY ==
[2020-02-20 16:58] VITALS: BMI 31.5
[2025-02-08 08:37] VITALS: BP 173/106; PULSE 84; RESP 16; TEMP 36.6; O2SAT 98; BMI 41.4
--- NOTE | 2025-02-08 08:42 | ED_ITS ---
HPI - Ear Problem General Chief complaint: Ear Stated complaint: Left side ear pain now, was seen Here 3 days ago Time Seen by Provider: 02/08/25 08:35 Source: patient Mode of arrival: Ambulatory History of Present Illness HPI Narrative: Patient here for bilateral ear pain. Patient is seen here 2 days ago and prescribed antibiotic drops to the right ear for otitis externa. Patient now has pain in the left ear starting last night. No drainage or hearing loss. It does sound muffled. Patient does use Q-tips. No bleeding from the ear. Patient is prediabetic. Blood pressure noted. Patient has a primary care and was recommended starting blood pressure medication. He did not. He does agree for illicit now. Patient currently on Cipro dexamethasone drops. I will prescribe Augmentin. As well as lisinopril. Related Data Previous Rx's ?Medication ?Instructions ?Recorded ciprofloxacin 0.3 %-dexamethasone 4 drp EAR-RIGHT BID 7 days #7.5 mL 02/06/25 0.1 % ear drops,suspension amoxicillin 875 mg-potassium 1 tab PO BID #14 tabs clavulanate 125 mg tablet lisinopril 10 mg tablet 10 mg PO DAILY #30 tabs 01/23 10/16 Allergies Allergy/AdvReac Type Severity Reaction Status Date / Time ibuprofen Allergy Hives Verified 02/06/25 08:11 Review of Systems Review of Systems Narrative: GENERAL: Negative chills, fatigue, malaise, fever, sweats. HEENT: Negative sinus pain, positive ear pain, negative sore throat RESPIRATORY: Negative dyspnea, cough CARDIOVASCULAR: Negative chest pain, palpitations GASTROINTESTINAL: Negative vomiting, nausea, abdominal pain : Negative dysuria, frequency, hematuria MUSCULOSKELETAL: Negative muscle or bony pain SKIN: Negative rash, skin lesions NEUROLOGIC: Negative weakness, numbness ROS Unobtainable: All systems reviewed & are unremarkable except as noted in HPI and below Patient History Medical History Patient denies medical problems Surgical History No pertinent past surgical history Family History Father Diabetes mellitus Asthma Mother Healthy adult Sister Asthma Social History household members: family alcohol intake frequency: 0-2 drinks per day Exam Narrative Exam Narrative: GENERAL: in no distress, not toxic not dyspneic HEAD: Normocephalic. EYES: Pupils equal round ENT: Mucous membranes moist. No pharyngeal erythema edema or exudates. Examination right ear there is tragus tenderness. There is mild edema of the canal. No discharge or bleeding. TM is seen and erythematous. No bulging. Examination of the left ear no tragal tenderness, canal is clear without edema or erythema. There is mild your team of the tympanic membrane but no bulging. No discharge or bleeding. Patient has intact bilateral ears with whispering ?99 ?as well as finger rubbing. NEURO: AOx4. Clear speech SKIN: Warm and dry PSYCH: Not anxious, is cooperative Initial Vital Signs Initial Vital Signs: Vital Signs Temperature 97.8 F 02/08/25 08:37 Pulse Rate 84 02/08/25 08:37 Respiratory Rate 16 02/08/25 08:37 Blood Pressure 173/106 H 02/08/25 08:37 Pulse Oximetry 98 02/08/25 08:37 Oxygen Delivery Method Room Air 02/08/25 08:37 Course Orders Ordered: Discontinued Medications Amoxicillin/Clavulanate Potassium (Amoxicillin/Clav 875/125 Mg) 1 tab PO NOW ONE Stop: 02/08/25 08:44 Last Admin: 02/08/25 08:51 Dose: 1 tab Documented By: JOSHUA Lisinopril (Lisinopril 10 Mg Tablet) 10 mg PO NOW ONE Stop: 02/08/25 08:44 Last Admin: 02/08/25 09:06 Dose: 10 mg Documented By: JOSHUA Vital Signs Vital signs: Vital Signs - 8 hr 02/08/25 08:37 02/08/25 08:45 02/08/25 09:06 Temperature 97.8 F Pulse Rate 84 Respiratory Rate 16 Blood Pressure 173/106 H 153/106 H 158/106 H Pulse Oximetry 98 Oxygen Delivery Method Room Air 02/08/25 09:46 Temperature Pulse Rate 76 Respiratory Rate 16 Blood Pressure 153/89 H Pulse Oximetry 98 Oxygen Delivery Method Room Air Medical Decision Making [facility] Narrative Medical decision making narrative: Patient here for bilateral ear pain. Patient is seen here 2 days ago and prescribed antibiotic drops to the right ear for otitis externa. Patient now has pain in the left ear starting last night. No drainage or hearing loss. It does sound muffled. Patient does use Q-tips. No bleeding from the ear. Patient is prediabetic. Blood pressure noted. Patient has a primary care and was recommended starting blood pressure medication. He did not. He does agree for illicit now. Patient currently on Cipro dexamethasone drops. I will prescribe Augmentin. As well as lisinopril. MDM After history and exam, no blood work or imaging indicated. Augmentin and lisinopril will be ordered. Differential considered: Includes but not limited to otitis externa otitis media perforated tympanic membrane. Essential hypertension. Medical records reviewed: ER visit here notes February 06, 2025 Re-evaluations: Reviewed with patient treatment plan and exam findings. He agrees with plan. Pain is controlled. ENT referral provided. He desires discharge home. No drops be placed on the left ear. Augmentin will be prescribed. It was started here. Patient will continue Cipro drops to the right ear. Discussion: Appropriate for discharge home. Exam is reassuring. Pain control. Return precautions reviewed. ENT referral provided. Antibiotics have been started and prescribed. He desires discharge home. Diagnosis: Otitis media left ear Discharge Plan Departure Patient Disposition: Home Clinical Impression: Otitis media Qualifiers: Otitis media type: unspecified Chronicity: acute Qualified Code(s): H66.90 - Otitis media, unspecified, unspecified ear Instructions: How to Instill Ear Drops, Essential Hypertension, DI for Otitis Media (Middle Ear Infection)-Child Activity Restrictions/Additional Instructions: Please continue ear drops on the right ear. At this time no drops indicated for the left ear. Prescription antibiotic has been provided for you to take by mouth. First dose was given here. Please call [facility] today for follow up. Please keep the ears free of any fluid/water. Do not use Q-tips to the ears to clean. Continue the right ear drops. Return if worse if any questions or concerns. Blood pressure medication has been started for here today. Please see your family doctor this week for re-evaluation your blood pressure. Return if worse if any questions or concerns Prescriptions: New amoxicillin-pot clavulanate 875-125 mg tablet 1 tab PO BID Qty: 14 0RF lisinopril 10 mg tablet 10 mg PO DAILY Qty: 30 0RF No Action ciprofloxacin-dexamethasone 0.3-0.1 % drops,suspension 4 drp EAR-RIGHT BID 7 Days Qty: 7.5 0RF Rx Instructions: Four drops to your right ear twice daily for 1 week Referrals: Jp Nielsen MD [Primary Care Provider, Medical] Robert Rivera PALizetteC [[employer] Professional, Ear, Nose, Throat] Stand Alone Forms: Patient Portal/API
[2025-02-08 08:45] VITALS: BP 153/106
[2025-02-08] MEDS: AMOXICILLIN/CLAV 875/125 MG 1 TAB PO (08:51)
[2025-02-08 09:06] VITALS: BP 158/106
[2025-02-08 09:46] VITALS: BP 153/89; PULSE 76; RESP 16; O2SAT 98
== END 2025-02-08 09:48 | disposition home or self-care (01) ==
PROVIDERS: Emergency Provider Emergency Medicine; PCP Family Medicine
DX: H66.92 Otitis media, unspecified, left ear (principal)
CPT/HCPCS: 99283

== ENCOUNTER 2025-02-24 22:23 | Emergency (ER) | payer OTHER, SELFPAY ==
[2020-02-20 16:58] VITALS: BMI 31.5
[2025-02-24 22:25] VITALS: BP 139/90; PULSE 92; RESP 18; TEMP 36.1; BMI 41.4
--- NOTE | 2025-02-24 23:15 | ED.EAR ---
HPI - Ear Problem General Chief complaint: Ear Stated complaint: rt ear px 1 day Time Seen by Provider: 02/24/25 22:37 History of Present Illness HPI Narrative: 34-year-old gentleman since with right ear pain for which he was seen and diagnosed with ear infection given antibiotic pills and ear drops. He is still symptomatic as he was blowing his nose and noticed whistling sound coming out of his right ear along with ear discharge. He denies any sore throat, cough, fever, chills, body aches, nausea, vomiting, diarrhea, headache, dizziness. Other than what is stated 14 point review of system is negative Related Data Previous Rx's ?Medication ?Instructions ?Recorded amoxicillin 875 mg-potassium 1 tab PO BID #14 tabs 02/08/25 clavulanate 125 mg tablet lisinopril 10 mg tablet 10 mg PO DAILY #30 tabs 02/08/25 cefdinir 300 mg capsule 300 mg PO Q12H #14 caps 02/24/25 Allergies Allergy/AdvReac Type Severity Reaction Status Date / Time ibuprofen Allergy Hives Verified 02/06/25 08:11 Review of Systems Review of Systems ROS Unobtainable: All systems reviewed & are unremarkable except as noted in HPI and below Patient History Medical History Patient denies medical problems Surgical History No pertinent past surgical history Family History Father Diabetes mellitus Asthma Mother Healthy adult Sister Asthma Social History household members: family Smoking Status: Never smoker alcohol intake frequency: 0-2 drinks per day Exam Narrative Exam Narrative: GENERAL: [34] year old patient appears stated age. Well-developed patient, in mild distress. HEAD: Atraumatic. Normocephalic. EYES: Pupils equal round and reactive. Extraocular motions intact. No scleral icterus. No injection or drainage. Right ear TM bulging no active discharge ENT: Nose without bleeding, purulent drainage. Throat without erythema, tonsillar hypertrophy or exudate. Airway patent. NECK: Trachea midline. Non tender EXTREMITIES: No edema or joint tenderness. BACK: Nontender without deformity or crepitance. No flank tenderness. NEURO: AOx3. SKIN: No rash or erythema of visible areas Initial Vital Signs Initial Vital Signs: Vital Signs Temperature 96.9 F L 02/24/25 22:25 Pulse Rate 92 H 02/24/25 22:25 Respiratory Rate 18 02/24/25 22:25 Blood Pressure 139/90 02/24/25 22:25 Oxygen Delivery Method Room Air 02/24/25 22:25 Course Vital Signs Vital signs: Vital Signs - 8 hr 02/24/25 22:25 Temperature 96.9 F L Pulse Rate 92 H Respiratory Rate 18 Blood Pressure 139/90 Oxygen Delivery Method Room Air Medical Decision Making MDM Narrative Medical decision making narrative: All lab work vital signs nurse triage note medication list and previous ER visits and all imaging studies reviewed. Patient given cefdinir and [place] here. Differential diagnosis otitis media otitis externa TM perforation. Discharge Plan Departure Patient Disposition: Home Clinical Impression: Otitis media Activity Restrictions/Additional Instructions: Return with new or worsening symptom. Take medication as directed. Follow up PCP 1-2 weeks if no improvement in symptoms. Prescriptions: New cefdinir 300 mg capsule 300 mg PO Q12H Qty: 14 0RF No Action amoxicillin-pot clavulanate 875-125 mg tablet 1 tab PO BID Qty: 14 0RF lisinopril 10 mg tablet 10 mg PO DAILY Qty: 30 0RF Referrals: Jp Nielsen MD [Primary Care Provider, Medical] Stand Alone Forms: Patient Portal/API
[2025-02-24] MEDS: CEFDINIR 300 MG CAPSULE PO (23:37)
[2025-02-24 23:38] VITALS: BP 142/84; PULSE 86; RESP 18; O2SAT 95
== END 2025-02-24 23:46 | disposition home or self-care (01) ==
PROVIDERS: Emergency Provider Family Medicine; PCP Family Medicine
DX: H66.91 Otitis media, unspecified, right ear (principal)
CPT/HCPCS: 99283